=== PATIENT | female | born 1940 | race Caucasian/White ===

== ENCOUNTER 2019-12-11 17:06 | Emergency (ER) | payer MEDICARE ==
--- NOTE | 2019-12-11 17:39 | ERPHSYRPT ---
- History of Present Illness Time Seen by Provider: 12/11/19 17:37 Source: patient, family Exam Limitations: no limitations Patient Subjective Stated Complaint: left hand fingers have been going numb off and on for the past week, pain in socrates shoulders but more so in the left Triage Nursing Assessment: Pt brought to the ER by her , pt denies any injuries to the arm, denies injury to her neck or back, hypertensive, denies pain at this time, pulses normal capillary refill normal Physician History: left hand fingers have been going numb off and on for the past week, pain in socrates shoulders but more so in the left. no chest pain Timing/Duration: week(s) (past week) Severity: mild Associated Symptoms: denies symptoms Allergies/Adverse Reactions: No Known Drug Allergies Allergy (Verified 12/11/19 17:22) Home Medications: Levothyroxine Sodium 25 Mcg [Synthroid 25 Mcg] 1 tab PO DAILY 10/19/13 [ History] Pregabalin 50 mg [Lyrica 50MG] 2 tab PO BID 10/19/13 [History] Fenofibrate Nanocrystallized [Fenofibrate] 145 mg PO DAILY 12/11/19 [History] Oxybutynin Chloride 5 mg [Ditropan 5 MG] 5 mg PO BID 12/11/19 [History] Simvastatin 40 mg PO DAILY 12/11/19 [History] Hx Tetanus, Diphtheria Vaccination/Date Given: No Hx Influenza Vaccination/Date Given: No Hx Pneumococcal Vaccination/Date Given: No Travel Risk - International Travel Have you traveled outside of the country in past 3 weeks: No Have you or anyone close to you been diagnosed with or: No Do your reside in a community with a known COVID-19 case?: No - Coronavirus Screening Has patient experienced Coronavirus symptoms: No - Review of Systems Constitutional: No Fever, No Chills Eyes: No Symptoms Ears, Nose, & Throat: No Symptoms Respiratory: No Cough, No Dyspnea Cardiac: No Chest Pain, No Edema, No Syncope Abdominal/Gastrointestinal: No Abdominal Pain, No Nausea, No Vomiting, No Diarrhea Genitourinary Symptoms: No Dysuria Musculoskeletal: Arthralgias, Joint Pain (bilateral shoulder pain), No Back Pain , No Neck Pain Skin: No Rash Neurological: No Dizziness, No Focal Weakness, No Sensory Changes Psychological: No Symptoms Endocrine: No Symptoms All Other Systems: Reviewed and Negative - Past Medical History Pertinent Past Medical History: Yes Neurological History: No Pertinent History ENT History: No Pertinent History Cardiac History: No Pertinent History Respiratory History: No Pertinent History, Sleep Apnea Endocrine Medical History: Hypothyroidism Musculoskeletal History: Arthritis, Other GI Medical History: No Pertinent History History: No Pertinent History Psycho-Social History: No Pertinent History Female Reproductive Disorders: No Pertinent History - Past Surgical History Past Surgical History: Yes Neuro Surgical History: No Pertinent History Cardiac: No Pertinent History Respiratory: No Pertinent History Gastrointestinal: No Pertinent History Genitourinary: No Pertinent History Musculoskeletal: Orthopedic Surgery Female Surgical History: Hysterectomy Other Surgical History: tumor removed from uterus per hysterectomy. lt knee - Social History Smoking Status: Never smoker Exposure to second hand smoke: No Drug Use: none Patient Lives Alone: No - Female History Hx Now: No - Nursing Vital Signs Nursing Vital Signs: Initial Vital Signs Temperature 98.3 F 12/11/19 17:14 Pulse Rate 93 H 12/11/19 17:14 Blood Pressure 156/66 12/11/19 17:14 O2 Sat by Pulse Oximetry 97 12/11/19 17:14 Pain Scale Pain Intensity 0 - Physical Exam General Appearance: no apparent distress, alert Eye Exam: PERRL/EOMI, eyes nml inspection Ears, Nose, Throat Exam: normal ENT inspection, TMs normal, pharynx normal, moist mucous membranes Neck Exam: normal inspection, non-tender, supple, full range of motion Respiratory Exam: normal breath sounds, lungs clear, No respiratory distress Cardiovascular Exam: regular rate/rhythm, normal heart sounds, normal peripheral pulses Gastrointestinal/Abdomen Exam: soft, normal bowel sounds, No tenderness, No mass Back Exam: normal inspection, normal range of motion, No CVA tenderness, No vertebral tenderness Extremity Exam: normal inspection, pelvis stable, limited range of motion (both shoulder) Neurologic Exam: alert, oriented x 3, cooperative, normal mood/affect, nml cerebellar function, nml station & gait, sensation nml, No motor deficits Skin Exam: normal color, warm, dry, No rash Lymphatic Exam: No adenopathy SpO2: 97 - Course Nursing assessment & vital signs reviewed: Yes EKG Interpreted by Me: Sinus Rhythm, NORMAL ST-T - Radiology Exams Chest X-ray Interpretation: Reviewed by me, Negative Ordered Tests: Active Orders 24 hr Category Date Time Status EKG-ER Only STAT Care 12/11/19 17:35 Active CHEST 2 VIEWS (PA AND LAT) Stat Exams 12/11/19 17:35 Taken CBC W DIFF Stat Lab 12/11/19 17:58 Completed CMP Stat Lab 12/11/19 17:58 Completed TROPONIN Q3H Lab 12/11/19 17:58 Received TROPONIN Q3H Lab 12/11/19 20:45 Ordered TROPONIN Q3H Lab 12/11/19 23:45 Ordered TROPONIN Q3H Lab 12/12/19 02:45 Ordered TROPONIN Q3H Lab 12/12/19 05:45 Ordered Lab/Rad Data: Laboratory Result Diagrams 12/11/19 17:58 12/11/19 17:58 Laboratory Results 12/11/19 12/11/19 Range/Units 17:58 17:58 WBC 6.0 (4.0-10.5) K/mm3 RBC 3.93 L (4.1-5.4) M/mm3 Hgb 10.1 L (12.0-16.0) gm/dl Hct 32.6 L (35-47) % MCV 83.0 (78-100) fl MCH 25.7 L (26-32) pg MCHC 31.0 L (32-36) g/dl RDW 14.4 H (11.5-14.0) % Plt Count 388 (150-450) K/mm3 MPV 8.6 (7.5-11.0) fl Gran % 65.1 (36.0-66.0) % Eos # (Auto) 0.16 (0-0.5) Absolute Lymphs (auto) 1.39 (1.0-4.6) Absolute Monos (auto) 0.51 (0.0-1.3) Lymphocytes % 23.2 L (24.0-44.0) % Monocytes % 8.5 (0.0-12.0) % Eosinophils % 2.7 (0.00-5.0) % Basophils % 0.5 (0.0-0.4) % Absolute Granulocytes 3.90 (1.4-6.9) Basophils # 0.03 (0-0.4) Sodium 140 (137-145) mmol/L Potassium 4.3 (3.5-5.1) mmol/L Chloride 108 H (98-107) mmol/L Carbon Dioxide 26 (22-30) mmol/L Anion Gap 10.7 (5-15) MEQ/L BUN 18 H (7-17) mg/dL Creatinine 0.93 (0.52-1.04) mg/dL Estimated GFR > 60.0 ML/MIN Glucose 104 (74-106) mg/dL Calcium 11.2 H (8.4-10.2) mg/dL Total Bilirubin 0.50 (0.2-1.3) mg/dL AST 22 (14-36) U/L ALT 11 (0-35) U/L Alkaline Phosphatase 77 (38-126) U/L Serum Total Protein 8.1 (6.3-8.2) g/dL Albumin 4.2 (3.5-5.0) g/dL - Progress Progress: improved Counseled pt/family regarding: lab results, diagnosis, need for follow-up, rad results - Departure Departure Disposition: Home Clinical Impression: Tingling of both upper extremities, Pain of left shoulder joint on movement, Hypercalcemia Anemia Qualifiers: Anemia type: iron deficiency Iron deficiency anemia type: unspecified iron deficiency Qualified Code(s): D50.9 - Iron deficiency anemia, unspecified Condition: Stable Critical Care Time: No Referrals: DASHA RAND [Primary Care Provider] - Additional Instructions: Discharge/Care Plan JAVIER HERNÁNDEZ was seen on 12/11/19 in the Emergency Room. The patient was counseled regarding Diagnosis,Lab results, Imaging studies, need for follow up and when to return to the Emergency Room. Prescriptions given: Discharge Note I have spoken with the patient and/or caregivers. I have explained the patient' s condition, diagnosis and treatment plan based on the information available to me at this time. I have answered the patient's and/or caregiver's questions and addressed any concerns. The patient and/or caregivers have as good understanding of the patient's diagnosis, condition and treatment plan as can be expected at this point. The vital signs have been stable. The patient's condition is stable and appropriate for discharge from the emergency department. The patient will pursue further outpatient evaluation with the primary care physician or other designated or consulting physician as outlined in the discharge instructions. The patient and/or caregivers are agreeable to this plan of care and follow-up instructions have been explained in detail. The patient and/or caregivers have received these instruction. The patient/and or caregivers are aware that any significant change in condition or worsening of symptoms should prompt an immediate return to this or the closest emergency department or call 911. JAVIER HERNÁNDEZ was seen on 12/11/19 n the Emergency Room. At that time you were treated for an emergent condition, during your visit Laboratory, Radiology and/or other procedures may have been ordered. It is very important that you follow-up with your Primary Care Physician DASHA RAND within the next 24-48 hours to review your Emergency Room visit and the final results of testing that was ordered. Some test results such as Urine Cultures, Blood Cultures, and other cultures if ordered will not be finalized for 24-48 hours. If you do not have a Primary Care Provider please call the medical records department at [phone] ext [phone] to obtain a copy of your results or you may sign into our patient portal to obtain these results by visiting us @ [email or web address] and completing the following steps: 1. Click on the Patient Portal link 2. Click the Patient Self Enrollment Link to complete the enrollment form and entering your 3. Once the enrollment form is completed you will receive an email with a temporary ID and password at the email address you provided. 4. Next choose a user name and password. Your user name must be at least 4 characters long and your password must be at least 4 characters long. 5. Choose a security question from the list and provide your answer to the question. If you already have signed into the Health Portal you may access your Health Care Information 13/04 by the following steps: 1. Login to our website @ [email or web address] 2. Enter your original user name and password. FAQS [facility] Health Portal is an online tool that contains your Lab Results, Radiology Reports, Visit History, Discharge Instructions and Health Summary Lab and Radiology Results will not be available for 72 hours on the portal. The Portal is a secure site, passwords are encryted and URLs are re-written so they cannot be copied and pasted. You and authorized family members are the only ones who can access your Portal. Also there is a timeout feature that protects your information if you leave the Portal page open. If you have technical difficulty please use the Contact Us link on the page this will allow you to submit any questions you have regarding the Portal or you may contact the Medical Record Department at [phone] ext [phone].
[2019-12-11 18:01] LABS: BASOPHIL % 0.5 % (0.0-0.4); Basophil (Absolute #) 0.03 (0-0.4); Eosinophil % 2.7 % (0.00-5.0); Eosinophil (Absolute #) 0.16 (0-0.5); Hematocrit 32.6 % (35-47); Hemoglobin 10.1 gm/dl (12.0-16.0); Lymphocyte (Absolute #) 1.39 (1.0-4.6); Lymphocytes % 23.2 % (24.0-44.0); Mean Corpuscular Hemoglobin 25.7 pg (26-32); Mean Platelet Volume 8.6 fl (7.5-11.0); Monocyte (Absolute #) 0.51 (0.0-1.3); Monocytes % 8.5 % (0.0-12.0); Neutrophil % 65.1 % (36.0-66.0); Platelet Count 388 K/mm3 (150-450); Red Blood Count 3.93 M/mm3 (4.1-5.4); Red Cell Distribution Width 14.4 % (11.5-14.0)
[2019-12-11 18:12] LABS: ALBUMIN 4.2 g/dL (3.5-5.0); ALKALINE PHOSPHATASE 77 U/L (38-126); ANION GAP 10.7 MEQ/L (5-15); BLOOD UREA NITROGEN 18 mg/dL (7-17); CHLORIDE 108 mmol/L (98-107); Calcium 11.2 mg/dL (8.4-10.2); Carbon Dioxide 26 mmol/L (22-30); Creatinine 1 0.93 mg/dL (0.52-1.04); Glucose 104 mg/dL (74-106); Potassium 4.3 mmol/L (3.5-5.1); SGOT/AST 22 U/L (14-36); SGPT/ALT 11 U/L (0-35); SODIUM 140 mmol/L (137-145); Total Protein 8.1 g/dL (6.3-8.2)
[2019-12-11 18:43] VITALS: BP 145/60; PULSE 88; O2SAT 96
--- NOTE | 2019-12-12 08:45 | XRAY ---
Indication: Chest pain. Comparison: None PA/lateral chest demonstrates normal heart and lungs with incidental calcified granulomas. Bony thorax intact with mild osteopenia and degenerative changes. Impression: Nonacute chest with chronic features.
== END 2019-12-11 18:43 | disposition home or self-care (01) ==
LOC: ED 17:06
DX: R20.2 Paresthesia of skin (principal); M25.512 Pain in left shoulder; E83.52 Hypercalcemia; D64.9 Anemia, unspecified; G47.30 Sleep apnea, unspecified; E03.9 Hypothyroidism, unspecified; M19.90 Unspecified osteoarthritis, unspecified site
CPT/HCPCS: 36415; 71046; 80053; 84484; 85025; 93005; 99284

== ENCOUNTER 2020-03-02 04:56 | Day surgery (SDC) | payer MEDICARE ==
[2020-03-02] MEDS ORDERED: Lactated Ringers 1,000 ML IV ONE ×2 (06:08→08:42)
[2020-03-02] MEDS ORDERED: Lactated Ringers 1,000 ML IV SCH (07:30)
[2020-03-02] MEDS ORDERED: Ketamine HCl 50 MG/ML ONE (07:47)
[2020-03-02] MEDS ORDERED: DIPRIVAN 200 MG/20 ML IV ONE (07:47)
[2020-03-02 09:43] VITALS: BP 184/80; PULSE 80; O2SAT 96
--- NOTE | 2020-03-02 12:44 | OP ---
SURGERY DATE: 03/02/2020 SURGERY TIME: 757 PREOPERATIVE DIAGNOSIS: 1. ANEMIA. POSTOPERATIVE DIAGNOSIS: 1. GASTRITIS. 2. HIATAL HERNIA. 3. DIVERTICULOSIS. 4. SMALL SIGMOID POLYP. PROCEDURE: 1. Esophagogastroduodenoscopy. 2. Colonoscopy with cold forceps biopsy. SURGEON: Dr. Daigle. ANESTHESIA: MAC, given by the Anesthesia Department. BRIEF HISTORY: The patient is an 79 y/o WF presenting now for a history of anemia. The patient reports she has never had endoscopic evaluation. Is of note the patient takes Celebrex and Prednisone. The patient was described the risks of the procedure including the risk of perforation, phlebitis, untoward reaction to medication, bleeding, and missed lesions. The patient verbalized her understanding and desired to have the procedure performed. DESCRIPTION OF PROCEDURE: The patient was given the medications by the Anesthesia Department. She had continuous pulse oximetry, ECG monitoring, intermittent BP monitoring, and end tidal CO2 monitoring during the examination. She was placed in the left lateral decubitus position. A bite block was placed and the flexible Olympus gastroscope was used to intubate the oropharynx. A view of the larynx was obtained and was normal. The scope was easily introduced in the esophagus which appeared to be normal throughout its length. The stomach was entered where normal gastric rugal folds were seen and these distended nicely with the insufflation of air. The scope was passed along the greater curvature of the stomach to the antrum. The pylorus was encountered and intubated. The duodenum was inspected and found to be normal. The scope was withdrawn towards the stomach again. Retroflex view revealed a small hiatal hernia. No other mucosal lesions were encountered. The scope was then redirected towards the gastric antrum and withdrawn from the stomach. There was a generalized appearance of patchy erythema, but no erosions or ulcerations. The scope was removed from the patient. Next, a digital rectal examination was performed and revealed external hemorrhoids, no masses, and normal anal sphincter tone. The flexible Olympus pediatric colonoscope was used to intubate the rectum. A view of the colon was developed sequentially to the cecum. Upon insertion and withdrawal, including a retroflex view in the rectum, was noted diverticulosis throughout the colon. There was a small sigmoid colon polyp at the sigmoid/descending colon junction. This was biopsied using cold biopsy technique to rule out adenomatous change. No other mucosal lesions were noted. The patient did have a fairly acute hairpin turn in the sigmoid colon which we were able to negotiate carefully. The scope was removed from the patient who tolerated the procedure well and was sent back to OP recovery in good condition. The prep was noted to be fair with fair amounts of liquid stool in the left side of the colon and an occasional solid stool.
== END 2020-03-02 09:57 | disposition home or self-care (01) ==
LOC: SDC 04:56
PROVIDERS: ATTEND Family Medicine
DX: K29.70 Gastritis, unspecified, without bleeding (principal); D64.9 Anemia, unspecified; K44.9 Diaphragmatic hernia without obstruction or gangrene; K57.30 Diverticulosis of large intestine without perforation or abscess without bleeding; K64.4 Residual hemorrhoidal skin tags; D12.5 Benign neoplasm of sigmoid colon
CPT/HCPCS: 88305; 99100; J2704

== ENCOUNTER 2020-09-09 23:07 | Emergency (ER) | payer MEDICARE ==
--- NOTE | 2020-09-09 23:15 | ERPHSYRPT ---
- History of Present Illness Time Seen by Provider: 09/09/20 23:10 Source: patient, EMS Exam Limitations: no limitations Physician History: The patient is an 79-year-old female who presents with a chief complaint of a head injury after a mechanical fall that occurred this evening just prior to arrival to the emergency department. She stated she was in her living room and about the put on some [place] decorations when she tripped over a rug and fell impacting her head either on the floor on an unknown object. There is no loss of conscious reported. EMS was called to help assist the patient off of the floor and transported her to the emergency department for further evaluation and management. She complains of a mild headache and appears to have a hematoma to the right parietal occipital aspect of her scalp. She denies taking any antiplatelets or anticoagulants. She also complained of some right lateral neck pain. The pain is mild, nonradiating constant. She was offered pain medication, but declined. She had no additional complaints. Timing/Duration: today Severity: mild Associated Symptoms: No nausea, No vomiting, No abdominal pain, No shortness of breath, No cough, No chest pain Allergies/Adverse Reactions: No Known Drug Allergies Allergy (Verified 03/02/20 06:26) Home Medications: Levothyroxine Sodium 25 Mcg [Synthroid 25 Mcg] 1 tab PO DAILY 10/19/13 [History] Fenofibrate Nanocrystallized [Fenofibrate] 145 mg PO DAILY 12/11/19 [History] Oxybutynin Chloride 5 mg [Ditropan 5 MG] 5 mg PO BID 12/11/19 [History] Simvastatin 40 mg PO DAILY 12/11/19 [History] Cetirizine HCl [Zyrtec] 10 mg PO DAILY PRN PRN 02/17/20 [History] Acetaminophen [Acetaminophen ER] 650 mg PO DAILY PRN 03/02/20 [History] predniSONE [Prednisone] 5 mg PO DAILY 09/09/20 [History] Hx Tetanus, Diphtheria Vaccination/Date Given: No Hx Influenza Vaccination/Date Given: No Hx Pneumococcal Vaccination/Date Given: No - Review of Systems Constitutional: No Fever, No Chills Eyes: No Symptoms Respiratory: No Cough, No Cyanosis Cardiac: No Chest Pain, No Palpitations, No Syncope Abdominal/Gastrointestinal: No Abdominal Pain Musculoskeletal: Neck Pain, Fall, Injury, No Back Pain, No Deformity Skin: Other (Hematoma to scalp) Neurological: Headache Psychological: No Symptoms Immunological/Allergic: No Symptoms All Other Systems: Reviewed and Negative - Past Medical History Pertinent Past Medical History: Yes Neurological History: No Pertinent History ENT History: No Pertinent History Cardiac History: No Pertinent History Respiratory History: No Pertinent History Endocrine Medical History: Hypothyroidism Musculoskeletal History: Arthritis, Other GI Medical History: Gallbladder Disease History: No Pertinent History Psycho-Social History: No Pertinent History Female Reproductive Disorders: No Pertinent History Other Medical History: anemia, - Past Surgical History Past Surgical History: Yes Neuro Surgical History: No Pertinent History Cardiac: No Pertinent History Respiratory: No Pertinent History Gastrointestinal: Cholecystectomy Genitourinary: No Pertinent History Musculoskeletal: Orthopedic Surgery Female Surgical History: Hysterectomy Other Surgical History: tumor removed from uterus per hysterectomy. lt knee, foot surgery - Social History Smoking Status: Never smoker Exposure to second hand smoke: No Drug Use: none Patient Lives Alone: No - Nursing Vital Signs Nursing Vital Signs: Initial Vital Signs Temperature 98.2 F 09/09/20 23:13 Pulse Rate 95 H 09/09/20 23:13 Respiratory Rate 20 09/09/20 23:13 Blood Pressure 182/94 09/09/20 23:13 O2 Sat by Pulse Oximetry 97 09/09/20 23:13 Pain Scale Pain Intensity 2 - Physical Exam General Appearance: no apparent distress, alert Eye Exam: PERRL/EOMI, eyes nml inspection Ears, Nose, Throat Exam: normal ENT inspection, pharynx normal, moist mucous membranes, No pharyngeal erythema, No tonsillar exudate Neck Exam: normal inspection, supple, other (Mild tenderness to the right lateral aspect of the neck with no visible injury. No crepitus, deformities or step-offs noted. There is no midline spine tenderness.), No non-tender Respiratory Exam: normal breath sounds, lungs clear, airway intact, No chest tenderness, No respiratory distress, No diminished breath sounds, No accessory muscle use Cardiovascular Exam: regular rate/rhythm, normal heart sounds, normal peripheral pulses, capillary refill <2 sec, No murmur, No friction rub, No gallop, No edema Gastrointestinal/Abdomen Exam: soft, No tenderness, No distention, No mass, No guarding, No ecchymosis Pelvic Exam: not done Rectal Exam: deferred Back Exam: normal inspection, other (Visible injury noted), No CVA tenderness, No vertebral tenderness Extremity Exam: normal inspection, normal range of motion, No tenderness Neurologic Exam: alert, oriented x 3 (GCS 15), cooperative, normal mood/affect, No uncooperative Skin Exam: normal color, warm, dry, other (1-2 hematoma noted to the R parietal/occipital aspect of scalp), No rash, No petechiae SpO2 Interpretation: normal - Course Nursing assessment & vital signs reviewed: Yes - CT Exams Head CT Interpretation: Tele-radiologist Report (Right parietal scalp contusion) Cervical Spine CT Interpretation: Tele-radiologist Report (Degenerative changes, thyroid nodule, pulmonary nodule) Ordered Tests: Active Orders 24 hr Category Date Time Status Ambulate Patient ROUTINE Care 09/10/20 00:20 Completed CERVICAL SPINE WO CONTRAST [CT] Stat Exams 09/09/20 23:15 Taken HEAD WITHOUT CONTRAST [CT] Stat Exams 09/09/20 23:15 Taken - Progress Progress: unchanged Progress Note: 09/09/20 23:32 Nontoxic in appearance. The patient is A&O x3 with a GCS of 15. Presents with a mechanical fall and a head injury. I will go and obtain a head CT and cervical spine CT and if these are within normal limits I will see if she can ambulate and if she can ambulate without difficulty or complaint of hip pain she can be discharged home to follow-up with her primary care provider if needed. 09/10/20 01:21 The patient was able to ambulate without difficulty or with complaints of hip pain or pelvic pain. Counseled pt/family regarding: diagnosis, need for follow-up, rad results - Departure Departure Disposition: Extended Care Facility Clinical Impression: Head injury, Scalp hematoma, Neck pain, Pulmonary nodule, Thyroid nodule Condition: Stable Critical Care Time: No Referrals: DASHA RAND [Primary Care Provider] - Instructions: Contusion (DC), Preventing Falls, Thyroid Nodules, Minor Head Injury (DC), Pulmonary Nodule Additional Instructions: Please take Tylenol as needed for any ongoing pain or headaches. You can purchase this medication [id number]. Please take this medication as instructed on the medication bottle.
[2020-09-10 01:21] VITALS: BP 128/84; PULSE 82; O2SAT 98
--- NOTE | 2020-09-10 08:54 | XRAY ---
Indication: Right head trauma following fall. Multiple contiguous axial images obtained through the head without contrast. Comparison: July 16, 2006. Age-appropriate global atrophy and minimal periventricular degenerative micro-ischemia bilaterally. No acute intracranial hemorrhage, abnormal extra-axial fluid collection, or mass effect. Fourth ventricle is midline without hydrocephalus. Minimal right parietal scalp soft tissue swelling/hematoma near the vertex. Bony calvarium intact. Visualized paranasal sinuses and mastoid air cells are clear. Impression: Minimal right scalp soft tissue swelling/hematoma. Otherwise nonacute senile brain. Comment: Preliminary interpretation was made by [facility]. No critical discrepancy.
--- NOTE | 2020-09-10 08:58 | XRAY ---
Indication: Right head trauma following fall. Multiple contiguous axial images obtained through the cervical spine. Sagittal and coronal reformatted images obtained. Comparison: None. Age-related osteopenia. Axial images negative for acute fracture, suspicious bony lesions, or spinal canal stenosis. Mild/moderate C3-C7 degenerative endplate spurring. Also mild atlantoaxial degenerative arthropathy and multilevel bilateral degenerative facet hypertrophy. Sagittal and coronal reformatted images demonstrates lordotic straightening, positional versus paraspinal spasm. There is C3-C7 disc space loss. No acute compression fracture, subluxation, or jumped facet. Normal appearing craniocervical junction. Visualized noncontrasted soft tissues demonstrates mild scattered carotid calcifications bilaterally. Also 4 cm left thyroid heterogeneous mass with calcifications translating the trachea to the right. Lung apices are clear. Impression: 1. Cervical lordotic straightening, positional versus paraspinal spasm. 2. Negative for acute fracture/subluxation. 3. Osteopenia and multilevel degenerative changes. 4. Heterogeneous 4 cm left thyroid gland mass with mass effect. Correlate clinically. Thyroid sonogram may yield further information if not already performed. Comment: Preliminary interpretation was made by [facility]. No critical discrepancy.
== END 2020-09-10 01:30 | disposition home or self-care (01) ==
LOC: ED 23:07
DX: S00.83XA Contusion of other part of head, initial encounter (principal); W01.198A Fall on same level from slipping, tripping and stumbling with subsequent striking against other object, initial encounter; R51.9 Headache, unspecified; M54.2 Cervicalgia; R91.1 Solitary pulmonary nodule; E04.1 Nontoxic single thyroid nodule; Z79.899 Other long term (current) drug therapy; E03.9 Hypothyroidism, unspecified
CPT/HCPCS: 70450; 72125; 99284

== ENCOUNTER 2021-02-07 10:23 | Emergency (ER) | payer MEDICARE ==
--- NOTE | 2021-02-07 10:26 | ERPHSYRPT ---
- History of Present Illness Time Seen by Provider: 02/07/21 10:26 Source: patient Exam Limitations: no limitations Physician History: This is an 80-year-old white female who has known enlarging thyroid gland right side greater than left side and is scheduled to have a thyroidectomy on March 05, 2021. Patient was here yesterday to have labs drawn but there was specimen hemolyzed. I contacted the lab and the CBC specimen was hemolyzed. The BMP that was ordered was not hemolyzed. Since the patient had to come back to get her blood drawn, patient's daughter brought her mom into the emergency department because she was complaining that she had mild dysphagia symptoms when eating solid foods. Patient states that she has not felt like eating much lately. Patient states that she can tolerate liquids and soft foods fine. Patient has no problems with breathing. Daughter was concerned because of that dysphagia symptom and the fact she has not been eating well for the last several days. Timing/Duration: day(s) (Several), intermittent Associated Symptoms: loss of appetite Allergies/Adverse Reactions: No Known Drug Allergies Allergy (Verified 02/07/21 10:48) Home Medications: Levothyroxine Sodium 25 Mcg [Synthroid 25 Mcg] 1 tab PO DAILY 10/19/13 [History] Fenofibrate Nanocrystallized [Fenofibrate] 145 mg PO DAILY 12/11/19 [History] Oxybutynin Chloride 5 mg [Ditropan 5 MG] 5 mg PO BID 12/11/19 [History] Simvastatin 40 mg PO DAILY 12/11/19 [History] Cetirizine HCl [Zyrtec] 10 mg PO DAILY PRN PRN 02/17/20 [History] Acetaminophen [Acetaminophen ER] 650 mg PO DAILY PRN 03/02/20 [History] predniSONE [Prednisone] 5 mg PO DAILY 09/09/20 [History] Hx Tetanus, Diphtheria Vaccination/Date Given: No Hx Influenza Vaccination/Date Given: No Hx Pneumococcal Vaccination/Date Given: No Travel Risk - International Travel Have you traveled outside of the country in past 3 weeks: No - Coronavirus Screening Are you exhibiting any of the following symptoms?: No Close contact with a COVID-19 positive Pt in past 14-21 Days: No - Review of Systems Constitutional: No Symptoms Eyes: No Symptoms Ears, Nose, & Throat: No Symptoms Respiratory: No Symptoms Cardiac: No Symptoms Abdominal/Gastrointestinal: Dysphagia (Mild with solid foods) Genitourinary Symptoms: No Symptoms Musculoskeletal: No Symptoms Skin: No Symptoms Neurological: No Symptoms Psychological: No Symptoms Endocrine: No Symptoms Hematologic/Lymphatic: No Symptoms Immunological/Allergic: No Symptoms All Other Systems: Reviewed and Negative - Past Medical History Pertinent Past Medical History: Yes Neurological History: No Pertinent History ENT History: No Pertinent History Cardiac History: No Pertinent History Respiratory History: No Pertinent History Endocrine Medical History: Hypothyroidism Musculoskeletal History: Arthritis, Other GI Medical History: Gallbladder Disease History: No Pertinent History Psycho-Social History: No Pertinent History Female Reproductive Disorders: No Pertinent History Other Medical History: anemia, - Past Surgical History Past Surgical History: Yes Neuro Surgical History: No Pertinent History Cardiac: No Pertinent History Respiratory: No Pertinent History Gastrointestinal: Cholecystectomy Genitourinary: No Pertinent History Musculoskeletal: Orthopedic Surgery Female Surgical History: Hysterectomy Other Surgical History: tumor removed from uterus per hysterectomy. lt knee, foot surgery - Social History Smoking Status: Never smoker Exposure to second hand smoke: No Drug Use: none Patient Lives Alone: No - Nursing Vital Signs Nursing Vital Signs: Initial Vital Signs Temperature 97.0 F 02/07/21 10:38 Pulse Rate 73 02/07/21 10:38 Respiratory Rate 20 02/07/21 10:38 Blood Pressure 179/68 02/07/21 10:38 O2 Sat by Pulse Oximetry 99 02/07/21 10:38 Pain Scale Pain Intensity [Neck] 1 Pain Intensity 1 - Physical Exam General Appearance: no apparent distress, alert, anxiety Eye Exam: PERRL/EOMI Ears, Nose, Throat Exam: normal ENT inspection, moist mucous membranes Neck Exam: normal inspection, supple, full range of motion, thyromegaly (Generalized but right side is larger than the left. The site is tender as well.), other (No evidence of abscess or skin redness or irritation. There is no stridor present.), No subcutaneous emphysema Respiratory Exam: normal breath sounds, lungs clear, airway intact, No chest tenderness, No respiratory distress, No wheezing, No stridor Cardiovascular Exam: regular rate/rhythm, normal heart sounds, normal peripheral pulses Gastrointestinal/Abdomen Exam: soft, normal bowel sounds, No tenderness Pelvic Exam: not done Rectal Exam: not done Back Exam: normal inspection, normal range of motion, No CVA tenderness, No vertebral tenderness Extremity Exam: normal inspection, normal range of motion, pelvis stable Neurologic Exam: alert, oriented x 3, cooperative, geriatric nurse practitioner II-XII nml as tested, normal mood/affect, nml cerebellar function, nml station & gait, sensation nml Skin Exam: normal color, warm, No dry Lymphatic Exam: adenopathy SpO2 Interpretation: normal O2 Delivery: Room Air - Course Nursing assessment & vital signs reviewed: Yes Ordered Tests: Active Orders 24 hr Category Date Time Status NECK WO CONTRAST [CT] Stat Exams 02/07/21 11:18 Completed CBC W DIFF Stat Lab 02/07/21 11:08 Completed MAG [MAGNESIUM] Stat Lab 02/07/21 11:08 Completed Medication Summary Discontinued Medications Generic Name Dose Route Start Last Admin Trade Name Freq PRN Reason Stop Dose Admin Sodium Chloride 500 mls @ 500 mls/hr 02/07/21 10:54 02/07/21 12:19 Sodium Chloride 0.9% 500 Ml IV 02/07/21 11:53 Infused .Q1H ONE Infusion Sodium Chloride Confirm 02/07/21 11:13 Sodium Chloride 0.9% 500 Ml Administered 02/07/21 11:14 Dose 500 mls @ ud IV .STK-MED ONE Lab/Rad Data: Laboratory Result Diagrams 02/07/21 11:08 Laboratory Results 02/07/21 02/07/21 Range/Units 11:08 11:08 WBC 8.6 (4.0-10.5) K/mm3 RBC 3.94 L (4.1-5.4) M/mm3 Hgb 10.9 L (12.0-16.0) gm/dl Hct 36.7 (35-47) % MCV 93.1 (78-100) fl MCH 27.7 (26-32) pg MCHC 29.7 L (32-36) g/dl RDW 13.0 (11.5-14.0) % Plt Count 267 (150-450) K/mm3 MPV 8.9 (7.5-11.0) fl Gran % 79.6 H (36.0-66.0) % Eos # (Auto) 0.10 (0-0.5) Absolute Lymphs (auto) 1.13 (1.0-4.6) Absolute Monos (auto) 0.50 (0.0-1.3) Lymphocytes % 13.1 L (24.0-44.0) % Monocytes % 5.8 (0.0-12.0) % Eosinophils % 1.2 (0.00-5.0) % Basophils % 0.3 (0.0-0.4) % Absolute Granulocytes 6.85 (1.4-6.9) Basophils # 0.03 (0-0.4) Magnesium 2.2 (1.6-2.3) mg/dL - Progress Progress: unchanged Progress Note: 02/07/21 12:27 CAT scan of the soft tissue of the neck without contrast shows marked enlarged heterogeneous left thyroid gland with mass-effect of translating the trachea to the right. Medical decision making: I called Dr. Cristal Padilla, patient's surgical baby attendant. She is out of the office today but I did speak with Brooke, the office nurse. Brooke contacted Dr. Padilla and gave the information I provided Brooke. This included the CT scan report of markedly enlarged heterogeneous left thyroid gland with mass-effect of translating the trachea to the right. I also reported that the patient was having right-sided neck pain and mild dysphagia with solid foods. I told Brooke that the patient did not have stridor. Brooke reported to me that Dr. Padilla stated that the CAT scan report is no different than prior study that was done. She feels that the patient does not need to be transferred or admitted into the hospital at this time. She will call the patient tomorrow and discuss with the patient about possibly moving the surgery date up. Counseled pt/family regarding: lab results, diagnosis, need for follow-up, rad results - Departure Departure Disposition: Home Clinical Impression: Neck pain, Thyroid mass Condition: Stable Critical Care Time: No Referrals: DASHA RAND [Primary Care Provider] - Additional Instructions: Your endocrine surgeon will call you tomorrow and provide you with further management instructions. Continue your medication as prescribed.
[2021-02-07] MEDS ORDERED: Sodium Chloride 0.9% 500 ML 500 ML IV ONE ×2 (10:54→11:13)
[2021-02-07 11:24] LABS: Absolute Neutrophil Ct (ANC) 6.85 (1.4-6.9); BASOPHIL % 0.3 % (0.0-0.4); Basophil (Absolute #) 0.03 (0-0.4); Eosinophil % 1.2 % (0.00-5.0); Hematocrit 36.7 % (35-47); Hemoglobin 10.9 gm/dl (12.0-16.0); Lymphocyte (Absolute #) 1.13 (1.0-4.6); Lymphocytes % 13.1 % (24.0-44.0); Mean Cell Volume 93.1 fl (78-100); Mean Corpuscular Hemoglobin 27.7 pg (26-32); Mean Corpuscular Hgb Concent. 29.7 g/dl (32-36); Mean Platelet Volume 8.9 fl (7.5-11.0); Monocytes % 5.8 % (0.0-12.0); Neutrophil % 79.6 % (36.0-66.0); Platelet Count 267 K/mm3 (150-450); Red Blood Count 3.94 M/mm3 (4.1-5.4); White Blood Count 8.6 K/mm3 (4.0-10.5)
--- NOTE | 2021-02-07 12:06 | XRAY ---
Indication: Large thyroid with dysphagia. Right neck pain. Multiple contiguous axial images obtained through the neck without contrast. Comparison: None Enlarged heterogeneous left thyroid lobe with microcalcifications and extending substernal measuring at least 4.7 x 4.6 x 9 cm with mass effect translating the trachea to the right. Right thyroid unremarkable for noncontrast exam. Mild/moderate scattered vascular calcifications bilaterally. No pathologic cervical or supraclavicular lymphadenopathy. Parotid and submandibular glands are bilaterally symmetric. Cervical spine intact with osteopenia and mild/moderate multilevel degenerative changes. Patient is edentulous. Base of the brain unremarkable. Visualized paranasal sinuses and mastoid air cells are clear. Lung apices demonstrates a 1.0 x 1.3 cm noncalcified medial right upper lobe spiculated mass concerning for malignancy. Incidental tiny left upper lobe calcified granuloma. Impression: 1. Markedly enlarged heterogeneous left thyroid gland with mass effect as detailed. 2. Small right upper lobe spiculated mass concerning for malignancy. 3. Osteopenia and multilevel degenerative spondylosis.
[2021-02-07 12:24] VITALS: BP 160/59; PULSE 66; O2SAT 98
== END 2021-02-07 12:59 | disposition home or self-care (01) ==
LOC: ED 10:23
DX: M54.2 Cervicalgia (principal); E04.1 Nontoxic single thyroid nodule; R13.10 Dysphagia, unspecified; Z79.899 Other long term (current) drug therapy
CPT/HCPCS: 36000; 36415; 70490; 83735; 85025; 99284

== ENCOUNTER 2021-05-26 18:54 | Emergency (ER) | payer MEDICARE ==
[2021-05-26 19:11] VITALS: O2SAT 98
--- NOTE | 2021-05-26 19:18 | ERPHSYRPT ---
- History of Present Illness Source: patient, family Exam Limitations: no limitations Patient Subjective Stated Complaint: to er c/o fall with injury to left shoulder and left side of head. pt states was bending over looking at [place] and "went down" appears to have laceration to left head though needs soaked to measure area from dried blood in place Triage Nursing Assessment: pt arrives p/w/d resp easy a@ox3 denies any loc at time of incident. pt left arm mobile with some discomfort. Bruising and abrasion noted to top front of shoulder Physician History: pt tripped on grass today and fell striking head against small bench and no LOC no blood thinner, but also hit left shoulder and deformed with pain. alert and neurovasc intact . no CP or SOBreath. No dizziness. Occurred: just prior to arrival Reason for Fall: slipped, tripped, fell from standing pos Injuries/Pain Location: head, face, neck, upper extremity Loss of Consciousness: no loss of consciousness Quality: sharpness, throbbing Severity of Pain-Max: moderate Severity of Pain-Current: moderate Associated Symptoms (Fall): headache, neck pain Allergies/Adverse Reactions: No Known Drug Allergies Allergy (Verified 02/07/21 10:48) Home Medications: Levothyroxine Sodium 25 Mcg [Synthroid 25 Mcg] 1 tab PO DAILY 10/19/13 [History] Fenofibrate Nanocrystallized [Fenofibrate] 145 mg PO DAILY 12/11/19 [History] Oxybutynin Chloride 5 mg [Ditropan 5 MG] 5 mg PO BID 12/11/19 [History] Simvastatin 40 mg PO DAILY 12/11/19 [History] Cetirizine HCl [Zyrtec] 10 mg PO DAILY PRN PRN 02/17/20 [History] Acetaminophen [Acetaminophen ER] 650 mg PO DAILY PRN 03/02/20 [History] predniSONE [Prednisone] 5 mg PO DAILY 09/09/20 [History] Hx Tetanus, Diphtheria Vaccination/Date Given: No Hx Influenza Vaccination/Date Given: No Hx Pneumococcal Vaccination/Date Given: No Travel Risk - International Travel Have you traveled outside of the country in past 3 weeks: No - Coronavirus Screening Are you exhibiting any of the following symptoms?: No Close contact with a COVID-19 positive Pt in past 14-21 Days: No - Vaccine Status Have you recieved a Covid-19 vaccination: No - Review of Systems Constitutional: No Fever, No Chills Eyes: No Symptoms Ears, Nose, & Throat: No Symptoms Respiratory: No Cough, No Dyspnea Cardiac: No Chest Pain, No Edema, No Syncope Abdominal/Gastrointestinal: No Abdominal Pain, No Nausea, No Vomiting, No Diarrhea Genitourinary Symptoms: No Dysuria Musculoskeletal: Neck Pain, Deformity (left shoulder), Fall, No Back Pain Skin: No Rash Neurological: No Dizziness, No Focal Weakness, No Sensory Changes Psychological: No Symptoms Endocrine: No Symptoms All Other Systems: Reviewed and Negative - Past Medical History Pertinent Past Medical History: Yes Neurological History: No Pertinent History ENT History: No Pertinent History Cardiac History: No Pertinent History Respiratory History: No Pertinent History Endocrine Medical History: Hypothyroidism Musculoskeletal History: Arthritis, Other GI Medical History: Gallbladder Disease History: No Pertinent History Psycho-Social History: No Pertinent History Female Reproductive Disorders: No Pertinent History Other Medical History: anemia, - Past Surgical History Past Surgical History: Yes Neuro Surgical History: No Pertinent History Cardiac: No Pertinent History Respiratory: No Pertinent History Gastrointestinal: Cholecystectomy Genitourinary: No Pertinent History Musculoskeletal: Orthopedic Surgery Female Surgical History: Hysterectomy Other Surgical History: tumor removed from uterus per hysterectomy. lt knee, foot surgery - Social History Smoking Status: Never smoker Exposure to second hand smoke: No Drug Use: none Patient Lives Alone: No - Nursing Vital Signs Nursing Vital Signs: Initial Vital Signs Temperature 97.8 F 05/26/21 19:04 Pulse Rate 82 05/26/21 19:04 Respiratory Rate 18 05/26/21 19:04 Blood Pressure 187/72 05/26/21 19:04 O2 Sat by Pulse Oximetry 98 05/26/21 19:04 Pain Scale Pain Intensity 5 - [place] Coma Score Best Eye Response ([place]): (4) open spontaneously Best Verbal Response ([place]): (5) oriented Best Motor Response ([place]): (6) obeys commands [place] Total: 15 - Physical Exam General Appearance: no apparent distress, alert Head Injury: no evidence of injury Eye Exam: PERRL/EOMI ENT Exam: airway nml Neck Exam: trachea midline, normal inspection, tenderness (mid posterior spine) Respiratory/Chest Exam: normal breath sounds, No chest tenderness, No respiratory distress Cardiovascular Exam: normal heart sounds, regular rate/rhythm Gastrointestinal Exam: soft, No tenderness, No distention, No guarding, No ecchymosis Rectal Exam: deferred Back Exam: normal inspection, No vertebral tenderness Extremity Exam: normal inspection, normal range of motion, pelvis stable, No deformities Peripheral Pulses: carotid (R): 2+, carotid (L): 2+, femoral (R): 2+, femoral (L): 2+, dorsalis-pedis (R): 2+, dorsalis-pedis (L): 2+ Neurologic Exam: alert, oriented x 3, cooperative, sensation nml, No motor deficits Skin Exam: normal color, warm, dry SpO2 Interpretation: normal SpO2: 98 O2 Delivery: Room Air - Course Nursing assessment & vital signs reviewed: Yes EKG Interpreted by Me: Sinus Rhythm, NORMAL AXIS, NORMAL QRS, Non-specific ST Changes, Other (prolonged [place]) - Radiology Exams Chest X-ray Interpretation: Reviewed by me, No Infiltrates, Other (lung nodules) - CT Exams Head CT Interpretation: Tele-radiologist Report, No/Intracranial Hemorrhag Left Upper Extremity CT Interpretation: Tele-radiologist Report, No Fracture Cervical Spine CT Interpretation: Tele-radiologist Report, No Fracture Ordered Tests: Active Orders 24 hr Category Date Time Status EKG-ER Only STAT Care 05/26/21 19:20 Active IV Insertion STAT Care 05/26/21 19:20 Active CERVICAL SPINE WO CONTRAST [CT] Stat Exams 05/26/21 19:19 Taken CHEST 1 VIEW (PORTABLE) Stat Exams 05/26/21 19:36 Taken FACIAL BONES WO CONTRAST [CT] Stat Exams 05/26/21 19:19 Taken HEAD WITHOUT CONTRAST [CT] Stat Exams 05/26/21 19:19 Taken UPPER EXTREMITY W/O CONTRAST [CT] Stat Exams 05/26/21 19:20 Taken CBC W DIFF Stat Lab 05/26/21 19:37 Completed CMP Stat Lab 05/26/21 19:37 Completed Lactic Acid Stat Lab 05/26/21 19:28 Completed TROPONIN Q3H Lab 05/26/21 19:37 Completed TROPONIN Q3H Lab 05/26/21 22:30 Ordered TROPONIN Q3H Lab 05/27/21 01:30 Ordered TROPONIN Q3H Lab 05/27/21 04:30 Ordered TROPONIN Q3H Lab 05/27/21 07:30 Ordered UA W/RFX UR CULTURE Stat Lab 05/26/21 19:20 Ordered Medication Summary Generic Name Dose Route Start Last Admin Trade Name Briana PRN Reason Stop Dose Admin Sodium Chloride 1,000 mls @ 100 mls/hr 05/26/21 19:30 Sodium Chloride 0.9% 1000 Ml IV 06/25/21 19:29 .Q10H MAGDALENA Discontinued Medications Generic Name Dose Route Start Last Admin Trade Name Briana PRN Reason Stop Dose Admin Diphtheria/Tetanus/Acell Pertussis 0.5 ml 05/26/21 19:25 Adacel Vial IM 05/26/21 19:26 .ONCE ONE Lab/Rad Data: Laboratory Result Diagrams 05/26/21 19:37 05/26/21 19:37 Laboratory Results 05/26/21 05/26/21 05/26/21 Range/Units 19:37 19:37 19:37 WBC 7.5 (4.0-10.5) K/mm3 RBC 3.96 L (4.1-5.4) M/mm3 Hgb 10.4 L (12.0-16.0) gm/dl Hct 34.8 L (35-47) % MCV 87.9 (78-100) fl MCH 26.3 (26-32) pg MCHC 29.9 L (32-36) g/dl RDW 14.0 (11.5-14.0) % Plt Count 313 (150-450) K/mm3 MPV 8.7 (7.5-11.0) fl Gran % 78.4 H (36.0-66.0) % Eos # (Auto) 0.06 (0-0.5) Absolute Lymphs (auto) 0.99 L (1.0-4.6) Absolute Monos (auto) 0.54 (0.0-1.3) Lymphocytes % 13.3 L (24.0-44.0) % Monocytes % 7.2 (0.0-12.0) % Eosinophils % 0.8 (0.00-5.0) % Basophils % 0.3 (0.0-0.4) % Absolute Granulocytes 5.86 (1.4-6.9) Basophils # 0.02 (0-0.4) Sodium 142 (137-145) mmol/L Potassium 4.2 (3.5-5.1) mmol/L Chloride 107 (98-107) mmol/L Carbon Dioxide 24 (22-30) mmol/L Anion Gap 15.2 H (5-15) MEQ/L BUN 26 H (7-17) mg/dL Creatinine 1.17 H (0.52-1.04) mg/dL Estimated GFR 47.1 ML/MIN Glucose 136 H (74-106) mg/dL Lactic Acid (0.4-2.0) Calcium 11.7 H (8.4-10.2) mg/dL Total Bilirubin 0.50 (0.2-1.3) mg/dL AST 23 (14-36) U/L ALT 13 (0-35) U/L Alkaline Phosphatase 64 (38-126) U/L Troponin I < 0.012 (0.000-0.034) ng/mL Serum Total Protein 7.4 (6.3-8.2) g/dL Albumin 4.4 (3.5-5.0) g/dL 05/26/21 Range/Units 19:28 WBC (4.0-10.5) K/mm3 RBC (4.1-5.4) M/mm3 Hgb (12.0-16.0) gm/dl Hct (35-47) % MCV (78-100) fl MCH (26-32) pg MCHC (32-36) g/dl RDW (11.5-14.0) % Plt Count (150-450) K/mm3 MPV (7.5-11.0) fl Gran % (36.0-66.0) % Eos # (Auto) (0-0.5) Absolute Lymphs (auto) (1.0-4.6) Absolute Monos (auto) (0.0-1.3) Lymphocytes % (24.0-44.0) % Monocytes % (0.0-12.0) % Eosinophils % (0.00-5.0) % Basophils % (0.0-0.4) % Absolute Granulocytes (1.4-6.9) Basophils # (0-0.4) Sodium (137-145) mmol/L Potassium (3.5-5.1) mmol/L Chloride (98-107) mmol/L Carbon Dioxide (22-30) mmol/L Anion Gap (5-15) MEQ/L BUN (7-17) mg/dL Creatinine (0.52-1.04) mg/dL Estimated GFR ML/MIN Glucose (74-106) mg/dL Lactic Acid 1.3 (0.4-2.0) Calcium (8.4-10.2) mg/dL Total Bilirubin (0.2-1.3) mg/dL AST (14-36) U/L ALT (0-35) U/L Alkaline Phosphatase (38-126) U/L Troponin I (0.000-0.034) ng/mL Serum Total Protein (6.3-8.2) g/dL Albumin (3.5-5.0) g/dL - Progress Progress: improved, re-examined Progress Note: 05/26/21 21:06 pt advised that additional pathology may be evolving undetected and therefore need for f/u that , lung nodules, and lab findings as well as shoulder injury and concussion. she understands and wishes DC to outpt f/u rather than furtther w/u in ER or obs and has the capcity to make that choice. Counseled pt/family regarding: lab results, diagnosis, need for follow-up, rad results - Departure Departure Disposition: Home Clinical Impression: Pulmonary nodule, Right upper lobe pulmonary nodule, Other injury of muscle(s) and tendon(s) of the rotator cuff of left shoulder, sequela, Concussion, Contusion of face Condition: Good Critical Care Time: No Referrals: DASHA RAND [Primary Care Provider] - Instructions: Preventing Falls, Rotator Cuff Injury (DC), Shoulder Tendinopathy (DC), Concussion, Adult (DC), Multiple Pulmonary Nodules Additional Instructions: followup with your this week for lung nodules.and left shoulder injury . follow head injury precautions for concussion and return meantime if any symptoms of concern. followup kidneys and blood pressuree adn anemia with your as well.
[2021-05-26] MEDS ORDERED: Adacel Vial IM ONE ×2 (19:25→21:00)
[2021-05-26] MEDS ORDERED: Sodium Chloride 0.9% 1000 ML 1,000 ML IV SCH (19:30)
[2021-05-26 19:40] LABS: Absolute Neutrophil Ct (ANC) 5.86 (1.4-6.9); BASOPHIL % 0.3 % (0.0-0.4); Basophil (Absolute #) 0.02 (0-0.4); Eosinophil % 0.8 % (0.00-5.0); Eosinophil (Absolute #) 0.06 (0-0.5); Hematocrit 34.8 % (35-47); Hemoglobin 10.4 gm/dl (12.0-16.0); Lymphocyte (Absolute #) 0.99 (1.0-4.6); Lymphocytes % 13.3 % (24.0-44.0); Mean Cell Volume 87.9 fl (78-100); Mean Corpuscular Hemoglobin 26.3 pg (26-32); Mean Corpuscular Hgb Concent. 29.9 g/dl (32-36); Mean Platelet Volume 8.7 fl (7.5-11.0); Monocyte (Absolute #) 0.54 (0.0-1.3); Monocytes % 7.2 % (0.0-12.0); Neutrophil % 78.4 % (36.0-66.0); Platelet Count 313 K/mm3 (150-450); Red Blood Count 3.96 M/mm3 (4.1-5.4); White Blood Count 7.5 K/mm3 (4.0-10.5)
[2021-05-26 19:59] LABS: ALBUMIN 4.4 g/dL (3.5-5.0); ANION GAP 15.2 MEQ/L (5-15); BILIRUBIN,TOTAL 0.5 mg/dL (0.2-1.3); Calcium 11.7 mg/dL (8.4-10.2); Creatinine 1 1.17 mg/dL (0.52-1.04); EST GLOMERULAR FILTRATION RATE 47.1 ML/MIN; Potassium 4.2 mmol/L (3.5-5.1); Total Protein 7.4 g/dL (6.3-8.2)
[2021-05-26 21:00] VITALS: PULSE 74
[2021-05-26 21:01] LABS: Amourphous Crystal FEW /HPF (NEGATIVE); Appearance CLEAR (CLEAR); Bacteria RARE /HPF (NEGATIVE); Bilirubin NEGATIVE (NEGATIVE); Blood NEGATIVE Ery/ul (0-5); Glucose NEGATIVE (NEGATIVE); Ketones NEGATIVE (NEGATIVE); Leukocyte Esterase TRACE (NEGATIVE); Nitrite NEGATIVE (NEGATIVE); Protein,Urine Dip NEGATIVE (Negative); Specific Gravity 1.006 (1.005-1.025); Urobilinogen NEGATIVE mg/dL (0-1)
[2021-05-26 21:57] VITALS: BP 168/72
--- NOTE | 2021-05-27 07:08 | XRAY ---
Indication: Head and left facial injury following fall. Multiple contiguous axial images obtained through the facial bones. Sagittal and coronal reformatted images obtained Comparison: None. Patient is edentulous. Mild left facial soft tissue swelling/edema. No acute fracture, suspicious bone lesions, or radiopaque foreign body. Orbits including roof, wright, floors are intact. Paranasal sinuses and nasal passages are clear. Minimal nasal septal deviation to the right. Visualized noncontrasted soft tissues are unremarkable. CT head and CT cervical spine reported separately. Impression: Left facial soft tissue swelling/edema. Nasal septal deviation. Remaining CT facial bones negative. Comment: Preliminary interpretation made by [facility]. No critical discrepancy.
--- NOTE | 2021-05-27 07:08 | XRAY ---
Indication: Head injury following fall. Multiple contiguous axial images obtained through the head without contrast. Comparison: September 09, 2020. Again age-appropriate global atrophy and mild periventricular degenerative micro-ischemia bilaterally. No acute intracranial hemorrhage, abnormal extra-axial fluid collection, or mass effect. Fourth ventricle is midline without hydrocephalus. Bony calvarium intact. Visualized paranasal sinuses and master cells are clear. CT cervical spine and CT facial bones reported separately. Impression: Continued nonacute senile brain. Comment: Preliminary interpretation made by [facility]. No critical discrepancy.
--- NOTE | 2021-05-27 07:12 | XRAY ---
Indication: Head injury following fall. Multiple contiguous axial images obtained through the cervical spine. Sagittal and coronal reformatted images obtained. Comparison: September 09, 2020. Again age-related osteopenia. Axial images remain negative for acute fracture, suspicious bony lesions, or spinal canal stenosis. Stable mild/moderate C3-C7 degenerative endplate spurring, mild atlantoaxial degenerative arthropathy, and multilevel bilateral degenerative facet hypertrophy. Sagittal and coronal reformatted images again demonstrates lordotic reversal, positional versus paraspinal spasm. Stable C3-C7 degenerative disc space loss. No acute compression fracture, subluxation, or jumped facet. Normal appearing craniocervical junction. Visualized noncontrast soft tissues again demonstrates mild bilateral carotid calcifications. Lung apices demonstrates 1.1 cm right apical spiculated nodule concerning for malignancy. CT head and CT facial bones reported separately. Impression: 1. Cervical lordotic reversal, positional versus paraspinal spasm. 2. Continued negative acute fracture/subluxation. 3. Again osteopenia multilevel degenerative changes. 4. 1.1 cm right upper lobe spiculated nodule. Comment: Preliminary interpretation made by [facility]. No critical discrepancy.
--- NOTE | 2021-05-27 07:16 | XRAY ---
Indication: Pain following fall. Multiple contiguous axial images obtained through the left shoulder. Sagittal and coronal reformatted images obtained. Comparison: None. Osseous structures demineralized. No acute fracture, dislocation, or suspicious bony lesions. Incidental moderate acromioclavicular and glenohumeral degenerative arthropathy. Distal rotator cuff demonstrates calcific tendinitis. No large effusion. Minimal subclavian artery calcifications and a few left lung calcified granulomas. Remaining visualized noncontrasted soft tissues unremarkable. Impression: 1. Calcific tendinitis distal rotator cuff, osteopenia, degenerative changes, and old granulomatous disease. 2. Remaining CT left shoulder is negative. Comment: Preliminary interpretation made by [facility]. No critical discrepancy.
--- NOTE | 2021-05-27 07:18 | XRAY ---
Indication: Status post fall. Comparison: December 11, 2019. Portable chest unchanged again demonstrating left mid lung calcified granuloma. Remaining heart and lungs unremarkable. Bony thorax intact again with osteopenia and degenerative changes. No new/acute findings.
== END 2021-05-26 20:40 | disposition home or self-care (01) ==
LOC: ED 18:54
DX: R91.1 Solitary pulmonary nodule (principal); S46.002A Unspecified injury of muscle(s) and tendon(s) of the rotator cuff of left shoulder, initial encounter; W01.198A Fall on same level from slipping, tripping and stumbling with subsequent striking against other object, initial encounter; Y92.89 Other specified places as the place of occurrence of the external cause; S40.212A Abrasion of left shoulder, initial encounter; M54.2 Cervicalgia; R51.9 Headache, unspecified; Z79.899 Other long term (current) drug therapy; E03.9 Hypothyroidism, unspecified
CPT/HCPCS: 36415; 70450; 70486; 71045; 72125; 73200; 80053; 81001; 83605; 84484; 85025; 90471; 90715; 93005; 99284

== ENCOUNTER 2022-08-26 11:52 | Observation (INO) | payer MEDICARE ==
--- NOTE | 2022-08-26 11:57 | ERPHSYRPT ---
- History of Present Illness Time Seen by Provider: 08/26/22 11:57 Historian: patient, EMS Exam Limitations: other (Patient is not the best historian) Physician History: This is an 81-year-old white female patient of nurse practitioner Rashaun who presents to the emergency department via ambulance service with rectal bleeding. Patient is not the best historian. I was able to obtain from the patient that she is not short of breath. She has no chest pain. She has no abdominal pain. Her son arrived shortly after she did and states that approximately 2 weeks ago she did have a lung procedure performed. He also stated that this morning, his sister noticed blood clots rectally out of his mother. That is why they brought her into the emergency department via ambulance. He is unaware of the patient taking anticoagulation therapy. Patient does have a history of chronic anemia, hypothyroidism, hyperlipidemia, cholecystectomy and hysterectomy. Timing/Duration: today Quality: other (No abdominal pain) Severity of Pain-Max: none Severity of Pain-Current: none Associated Symptoms: denies symptoms Previous symptoms: no prior history Allergies/Adverse Reactions: No Known Drug Allergies Allergy (Verified 08/26/22 11:53) Home Medications: Levothyroxine Sodium 25 Mcg [Synthroid 25 Mcg] 100 mcg PO DAILY 10/19/13 [History] Fenofibrate Nanocrystallized [Fenofibrate] 145 mg PO DAILY 12/11/19 [History] Oxybutynin Chloride 5 mg [Ditropan 5 MG] 5 mg PO BID 12/11/19 [History] Simvastatin 40 mg PO DAILY 12/11/19 [History] Cetirizine HCl [Zyrtec] 10 mg PO DAILY PRN PRN 02/17/20 [History] predniSONE [Prednisone] 5 mg PO DAILY 09/09/20 [History] Donepezil HCl 10 mg [Aricept 10 MG] 10 mg PO HS 08/26/22 [History] Fluticasone Propionate [Flovent Diskus] 50 mcg IH DAILY 08/26/22 [History] Megestrol Acetate [Megace Susp] 40 mg PO DAILY 08/26/22 [History] Memantine HCl [Namenda] 10 mg PO 08/26/22 [History] guaiFENesin [Mucus Relief ER] 600 mg PO BID 08/26/22 [History] Hx Tetanus, Diphtheria Vaccination/Date Given: No Hx Influenza Vaccination/Date Given: No Hx Pneumococcal Vaccination/Date Given: No Travel Risk - International Travel Have you traveled outside of the country in past 3 weeks: No - Coronavirus Screening Are you exhibiting any of the following symptoms?: No Close contact with a COVID-19 positive Pt in past 14-21 Days: No - Vaccine Status Have you recieved a Covid-19 vaccination: No - Review of Systems Constitutional: No Symptoms Eyes: No Symptoms Ears, Nose, & Throat: No Symptoms Respiratory: No Symptoms Cardiac: No Symptoms Abdominal/Gastrointestinal: Hematochezia (With associated clots), No Abdominal Pain, No Nausea, No Vomiting, No Diarrhea Genitourinary Symptoms: No Symptoms Musculoskeletal: No Symptoms Skin: No Symptoms Neurological: No Symptoms Psychological: No Symptoms Endocrine: No Symptoms Hematologic/Lymphatic: No Symptoms Immunological/Allergic: No Symptoms All Other Systems: Reviewed and Negative - Past Medical History Pertinent Past Medical History: Yes Neurological History: No Pertinent History ENT History: No Pertinent History Cardiac History: No Pertinent History Respiratory History: No Pertinent History Endocrine Medical History: Hypothyroidism Musculoskeletal History: Arthritis, Other GI Medical History: Gallbladder Disease History: No Pertinent History Psycho-Social History: No Pertinent History Female Reproductive Disorders: No Pertinent History Other Medical History: anemia, - Past Surgical History Past Surgical History: Yes Neuro Surgical History: No Pertinent History Cardiac: No Pertinent History Respiratory: No Pertinent History Gastrointestinal: Cholecystectomy Genitourinary: No Pertinent History Musculoskeletal: Orthopedic Surgery Female Surgical History: Hysterectomy Other Surgical History: tumor removed from uterus per hysterectomy. lt knee, foot surgery - Social History Smoking Status: Never smoker Exposure to second hand smoke: No Drug Use: none Patient Lives Alone: No - Nursing Vital Signs Nursing Vital Signs: Initial Vital Signs Temperature 98.5 F 08/26/22 11:52 Pulse Rate 94 H 08/26/22 11:52 Respiratory Rate 22 08/26/22 11:52 Blood Pressure 149/57 08/26/22 11:52 O2 Sat by Pulse Oximetry 97 08/26/22 11:52 Pain Scale Pain Intensity 0 - Physical Exam General Appearance: no apparent distress, alert, anxiety Eye Exam: PERRL/EOMI, eyes nml inspection Ears, Nose, Throat Exam: normal ENT inspection, dry mucous membranes Neck Exam: normal inspection, non-tender, supple, full range of motion Respiratory Exam: normal breath sounds, lungs clear, airway intact, No chest tenderness, No respiratory distress Cardiovascular Exam: regular rate/rhythm, normal heart sounds, normal peripheral pulses Gastrointestinal/Abdomen Exam: soft, normal bowel sounds, No tenderness Pelvic Exam: not done Rectal Exam: not done Back Exam: normal inspection, normal range of motion, No CVA tenderness Extremity Exam: normal range of motion, pelvis stable, No normal inspection Neurologic Exam: alert, cooperative, 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, normal mood/affect, other (Oriented to self and place) Skin Exam: normal color, warm, dry Lymphatic Exam: No adenopathy SpO2 Interpretation: normal O2 Delivery: Room Air - Course Nursing assessment & vital signs reviewed: Yes Ordered Tests: Active Orders 24 hr Category Date Time Status Enema STAT Care 08/26/22 12:59 Active Archuleta [Catheter-[place] Archuleta] STAT Care 08/26/22 12:30 Active IV Insertion STAT Care 08/26/22 12:02 Active ABDOMEN AND PELVIS W/0 CONTRAS [CT] Stat Exams 08/26/22 12:02 Completed AMYLASE Stat Lab 08/26/22 12:15 Completed CBC W DIFF Stat Lab 08/26/22 12:15 Completed CMP Stat Lab 08/26/22 12:15 Completed LIPASE Stat Lab 08/26/22 12:15 Completed Lactic Acid Stat Lab 08/26/22 12:15 Completed PT INR [PROTIME WITH INR] Stat Lab 08/26/22 12:15 Completed UA W/RFX CULTURE Stat Lab 08/26/22 12:52 Completed Transfer Order Routine Transfer 08/26/22 Ordered Medication Summary Generic Name Dose Route Start Last Admin Trade Name Freq PRN Reason Stop Dose Admin Piperacillin Sod/Tazobactam 100 mls @ 200 mls/hr 08/26/22 16:05 Sod 3.375 gm/ Sodium Chloride IV 08/26/22 16:34 STAT ONE Lab/Rad Data: Laboratory Result Diagrams 08/26/22 12:15 08/26/22 12:15 Laboratory Results 08/26/22 08/26/22 08/26/22 Range/Units 12:52 12:15 12:15 WBC (4.0-10.5) x10^3/uL RBC (4.1-5.4) x10^6/uL Hgb (12.0-16.0) g/dL Hct (35-47) % MCV (78-100) fL MCH (26-32) pg MCHC (32-36) g/dL RDW (11.5-14.0) % Plt Count (150-450) x10^3/uL MPV (7.5-11.0) fL Gran % (36.0-66.0) % Immature Gran % (Auto) (0.00-0.4) % Nucleat RBC Rel Count (0.00-0.1) % Eos # (Auto) (0-0.5) x10^3/uL Immature Gran # (Auto) (0.00-0.03) x10^3u/L Absolute Lymphs (auto) (1.0-4.6) x10^3/uL Absolute Monos (auto) (0.0-1.3) x10^3/uL Absolute Nucleated RBC (0.00-0.01) x10^3u/L Lymphocytes % (24.0-44.0) % Monocytes % (0.0-12.0) % Eosinophils % (0.00-5.0) % Basophils % (0.0-0.4) % Absolute Granulocytes (1.4-6.9) x10^3/uL Basophils # (0-0.4) x10^3/uL PT (9.4-12.5) SECONDS INR (0.8-3.0) Sodium (137-145) mmol/L Potassium (3.5-5.1) mmol/L Chloride (98-107) mmol/L Carbon Dioxide (22-30) mmol/L Anion Gap (5-15) MEQ/L BUN (7-17) mg/dL Creatinine (0.52-1.04) mg/dL Estimated GFR ML/MIN Glucose (74-106) mg/dL Lactic Acid (0.4-2.0) Calcium (8.4-10.2) mg/dL Total Bilirubin (0.2-1.3) mg/dL AST (14-36) U/L ALT (0-35) U/L Alkaline Phosphatase (38-126) U/L Serum Total Protein (6.3-8.2) g/dL Albumin (3.5-5.0) g/dL Amylase (30-110) U/L Lipase (23-300) U/L Urinalys Dipstick Clnc MAIN LAB Urine Color YELLOW (YELLOW) Urine Appearance CLEAR (CLEAR) Urine pH 6.0 (5-6) Ur Specific [place] 1.025 (1.005-1.025) POC Urine Protein Conf NEGATIVE (Negative) Urine Ketones NEGATIVE (NEGATIVE) Urine Nitrite NEGATIVE (NEGATIVE) Urine Bilirubin NEGATIVE (NEGATIVE) Urine Urobilinogen 0.2 (0-1) mg/dL Urine Leukocytes NEGATIVE (NEGATIVE) Urine WBC (Auto) 0-2 (0-5) /HPF Urine RBC (Auto) NONE (0-2) /HPF U Epithel Cells (Auto) NONE (FEW) /HPF Urine Bacteria (Auto) NONE (NEGATIVE) /HPF Urine RBC NEGATIVE (0-5) Sohail/ul Ur Culture Indicated? NO Urine Glucose 100 A (NEGATIVE) mg/dL Influenza Type A Ag NEGATIVE (NEGATIVE) Influenza Type B Ag NEGATIVE (NEGATIVE) RSV (PCR) NEGATIVE (Negative) SARS-CoV-2 (PCR) NEGATIVE (NEGATIVE) ABO Group O Rh Factor POSITIVE Antibody Screen NEGATIVE (NEGATIVE) 08/26/22 08/26/22 08/26/22 Range/Units 12:15 12:15 12:15 WBC (4.0-10.5) x10^3/uL RBC (4.1-5.4) x10^6/uL Hgb (12.0-16.0) g/dL Hct (35-47) % MCV (78-100) fL MCH (26-32) pg MCHC (32-36) g/dL RDW (11.5-14.0) % Plt Count (150-450) x10^3/uL MPV (7.5-11.0) fL Gran % (36.0-66.0) % Immature Gran % (Auto) (0.00-0.4) % Nucleat RBC Rel Count (0.00-0.1) % Eos # (Auto) (0-0.5) x10^3/uL Immature Gran # (Auto) (0.00-0.03) x10^3u/L Absolute Lymphs (auto) (1.0-4.6) x10^3/uL Absolute Monos (auto) (0.0-1.3) x10^3/uL Absolute Nucleated RBC (0.00-0.01) x10^3u/L Lymphocytes % (24.0-44.0) % Monocytes % (0.0-12.0) % Eosinophils % (0.00-5.0) % Basophils % (0.0-0.4) % Absolute Granulocytes (1.4-6.9) x10^3/uL Basophils # (0-0.4) x10^3/uL PT 12.7 H (9.4-12.5) SECONDS INR 1.22 (0.8-3.0) Sodium 142 (137-145) mmol/L Potassium 4.2 (3.5-5.1) mmol/L Chloride 108 H (98-107) mmol/L Carbon Dioxide 28 (22-30) mmol/L Anion Gap 10.2 (5-15) MEQ/L BUN 34 H (7-17) mg/dL Creatinine 0.92 (0.52-1.04) mg/dL Estimated GFR > 60.0 ML/MIN Glucose 217 H (74-106) mg/dL Lactic Acid 1.8 (0.4-2.0) Calcium 11.1 H (8.4-10.2) mg/dL Total Bilirubin 0.70 (0.2-1.3) mg/dL AST 27 (14-36) U/L ALT 27 (0-35) U/L Alkaline Phosphatase 108 (38-126) U/L Serum Total Protein 7.0 (6.3-8.2) g/dL Albumin 3.3 L (3.5-5.0) g/dL Amylase 51 (30-110) U/L Lipase 34 (23-300) U/L Urinalys Dipstick Clnc Urine Color (YELLOW) Urine Appearance (CLEAR) Urine pH (5-6) Ur Specific [place] (1.005-1.025) POC Urine Protein Conf (Negative) Urine Ketones (NEGATIVE) Urine Nitrite (NEGATIVE) Urine Bilirubin (NEGATIVE) Urine Urobilinogen (0-1) mg/dL Urine Leukocytes (NEGATIVE) Urine WBC (Auto) (0-5) /HPF Urine RBC (Auto) (0-2) /HPF U Epithel Cells (Auto) (FEW) /HPF Urine Bacteria (Auto) (NEGATIVE) /HPF Urine RBC (0-5) Sohail/ul Ur Culture Indicated? Urine Glucose (NEGATIVE) mg/dL Influenza Type A Ag (NEGATIVE) Influenza Type B Ag (NEGATIVE) RSV (PCR) (Negative) SARS-CoV-2 (PCR) (NEGATIVE) ABO Group Rh Factor Antibody Screen (NEGATIVE) 08/26/22 Range/Units 12:15 WBC 16.3 H (4.0-10.5) x10^3/uL RBC 3.30 L (4.1-5.4) x10^6/uL Hgb 9.0 L (12.0-16.0) g/dL Hct 30.8 L (35-47) % MCV 93.3 (78-100) fL MCH 27.3 (26-32) pg MCHC 29.2 L (32-36) g/dL RDW 14.2 H (11.5-14.0) % Plt Count 537 H (150-450) x10^3/uL MPV 9.3 (7.5-11.0) fL Gran % 79.3 H (36.0-66.0) % Immature Gran % (Auto) 2.6 H (0.00-0.4) % Nucleat RBC Rel Count 0.0 (0.00-0.1) % Eos # (Auto) 0.07 (0-0.5) x10^3/uL Immature Gran # (Auto) 0.42 H (0.00-0.03) x10^3u/L Absolute Lymphs (auto) 1.79 (1.0-4.6) x10^3/uL Absolute Monos (auto) 1.03 (0.0-1.3) x10^3/uL Absolute Nucleated RBC 0.00 (0.00-0.01) x10^3u/L Lymphocytes % 11.0 L (24.0-44.0) % Monocytes % 6.3 (0.0-12.0) % Eosinophils % 0.4 (0.00-5.0) % Basophils % 0.4 (0.0-0.4) % Absolute Granulocytes 12.88 H (1.4-6.9) x10^3/uL Basophils # 0.06 (0-0.4) x10^3/uL PT (9.4-12.5) SECONDS INR (0.8-3.0) Sodium (137-145) mmol/L Potassium (3.5-5.1) mmol/L Chloride (98-107) mmol/L Carbon Dioxide (22-30) mmol/L Anion Gap (5-15) MEQ/L BUN (7-17) mg/dL Creatinine (0.52-1.04) mg/dL Estimated GFR ML/MIN Glucose (74-106) mg/dL Lactic Acid (0.4-2.0) Calcium (8.4-10.2) mg/dL Total Bilirubin (0.2-1.3) mg/dL AST (14-36) U/L ALT (0-35) U/L Alkaline Phosphatase (38-126) U/L Serum Total Protein (6.3-8.2) g/dL Albumin (3.5-5.0) g/dL Amylase (30-110) U/L Lipase (23-300) U/L Urinalys Dipstick Clnc Urine Color (YELLOW) Urine Appearance (CLEAR) Urine pH (5-6) Ur Specific [place] (1.005-1.025) POC Urine Protein Conf (Negative) Urine Ketones (NEGATIVE) Urine Nitrite (NEGATIVE) Urine Bilirubin (NEGATIVE) Urine Urobilinogen (0-1) mg/dL Urine Leukocytes (NEGATIVE) Urine WBC (Auto) (0-5) /HPF Urine RBC (Auto) (0-2) /HPF U Epithel Cells (Auto) (FEW) /HPF Urine Bacteria (Auto) (NEGATIVE) /HPF Urine RBC (0-5) Sohail/ul Ur Culture Indicated? Urine Glucose (NEGATIVE) mg/dL Influenza Type A Ag (NEGATIVE) Influenza Type B Ag (NEGATIVE) RSV (PCR) (Negative) SARS-CoV-2 (PCR) (NEGATIVE) ABO Group Rh Factor Antibody Screen (NEGATIVE) - Progress Progress Note: 08/26/22 12:53 CAT scan of the abdomen pelvis without contrast shows new, mild diffuse fecal stasis with moderate rectal impaction. 08/26/22 14:56 Medical decision making: This patient is an elderly 81-year-old female who is hard of hearing and lives with her elderly . She is anemic and had significant amount of blood clots rectally as well as fecal impaction. The plan is to place her in observation and do serial hemoglobins and then obtain surgical consultation for possible endoscopy during this stay. I spoke with Dr. Hernandez and he agrees with this plan Discussed with .: George Counseled pt/family regarding: lab results, diagnosis, need for follow-up, rad results - Departure Departure Disposition: Observation Clinical Impression: Rectal bleeding, Anemia, Leukocytosis Condition: Fair Critical Care Time: No Referrals: DASHA [facility] [employer] INSPECTOR [Primary Care Provider] - Follow up/PCP as directed
[2022-08-26 12:28] LABS: Absolute Neutrophil Ct (ANC) 12.88 x10^3/uL (1.4-6.9); Basophil (Absolute #) 0.06 x10^3/uL (0-0.4); Eosinophil % 0.4 % (0.00-5.0); Eosinophil (Absolute #) 0.07 x10^3/uL (0-0.5); Hematocrit 30.8 % (35-47); Lymphocyte (Absolute #) 1.79 x10^3/uL (1.0-4.6); Mean Cell Volume 93.3 fL (78-100); Mean Corpuscular Hemoglobin 27.3 pg (26-32); Mean Corpuscular Hgb Concent. 29.2 g/dL (32-36); Mean Platelet Volume 9.3 fL (7.5-11.0); Monocyte (Absolute #) 1.03 x10^3/uL (0.0-1.3); Monocytes % 6.3 % (0.0-12.0); Neutrophil % 79.3 % (36.0-66.0); Platelet Count 537 x10^3/uL (150-450); Red Cell Distribution Width 14.2 % (11.5-14.0); White Blood Count 16.3 x10^3/uL (4.0-10.5)
[2022-08-26 12:41] LABS: ALBUMIN 3.3 g/dL (3.5-5.0); ALKALINE PHOSPHATASE 108 U/L (38-126); AMYLASE 51 U/L (30-110); ANION GAP 10.2 MEQ/L (5-15); BLOOD UREA NITROGEN 34 mg/dL (7-17); CHLORIDE 108 mmol/L (98-107); Calcium 11.1 mg/dL (8.4-10.2); Carbon Dioxide 28 mmol/L (22-30); Creatinine 1 0.92 mg/dL (0.52-1.04); EST GLOMERULAR FILTRATION RATE > 60.0 ML/MIN; Glucose 217 mg/dL (74-106); LIPASE 34 U/L (23-300); Potassium 4.2 mmol/L (3.5-5.1); SGOT/AST 27 U/L (14-36); SGPT/ALT 27 U/L (0-35); SODIUM 142 mmol/L (137-145)
--- NOTE | 2022-08-26 12:49 | XRAY ---
Indication: Rectal bleeding 2 days. Multiple contiguous images obtained through the abdomen and pelvis without contrast. Comparison: October 19, 2013 Lung bases clear of infiltrate or effusion. Heart not enlarged. Radiopacities throughout the colon either ingested medication, bismuth, or barium. Mild scattered descending and sigmoid diverticulosis without diverticulitis. Noncontrasted stomach and small bowel loops appear nonobstructed. Normal appendix. Colon demonstrates mild diffuse scattered colonic fecal debris with moderate rectal impaction. Interval cholecystectomy. Again hysterectomy. Stable 1.3 cm left lower renal exophytic cyst and new 1.5 cm right upper renal cyst. No free fluid/air. Remaining liver, pancreas, spleen, adrenal glands, kidneys, ureters, and bladder are unremarkable for noncontrast exam. Moderate scattered aortoiliac calcifications without AAA. Osseous structures intact again with osteopenia, mild/moderate degenerative changes throughout the spine, and mild dextroscoliosis. Impression: 1. New mild diffuse fecal stasis with moderate rectal impaction. 2. Chronic findings including colonic diverticulosis, bilateral renal cysts, arteriosclerotic disease, and chronic bony findings. 3. Remaining CT abdomen/pelvis without contrast exam is negative.
[2022-08-26 13:02] LABS: ABO TYPING O; Antibody Screen NEGATIVE (NEGATIVE); INR 1.22 (0.8-3.0); PROTIME 12.7 SECONDS (9.4-12.5); RH TYPING POSITIVE
[2022-08-26 13:21] LABS: WBC 0-2 /HPF (0-5)
[2022-08-26 13:24] LABS: Appearance CLEAR (CLEAR); Bilirubin NEGATIVE (NEGATIVE); Dipstick done @ ? MAIN LAB; Glucose 100 mg/dL (NEGATIVE); Ketones NEGATIVE (NEGATIVE); Nitrite NEGATIVE (NEGATIVE); Protein,Urine Dip NEGATIVE (Negative); RBC NEGATIVE Ery/ul (0-5); Specific Gravity 1.025 (1.005-1.025); Urobilinogen 0.2 mg/dL (0-1)
[2022-08-26 13:26] LABS: Urine Cultured Indicated? NO
[2022-08-26 13:50] LABS: INFLUENZA A NEGATIVE (NEGATIVE); INFLUENZA B NEGATIVE (NEGATIVE); RESPIRATORY SYNCTIAL VIRUS NEGATIVE (Negative); SARS-CoV-2 Xpert Express NEGATIVE (NEGATIVE)
[2022-08-26] MEDS ORDERED: PIPERACILLIN/TAZOBACTAM 3.375 GM in Sodium Chloride 100ML MINI-BAG PLUS 100 ML IV ONE (16:05)
[2022-08-26] MEDS ORDERED: PIPERACILLIN/TAZOBACTAM IV ONE (17:31)
[2022-08-26] MEDS ORDERED: Sodium Chloride 100ML MINI-BAG PLUS 100 ML IV ONE (17:31)
[2022-08-26] MEDS ORDERED: Zofran 4 MG/2 ML VIAL IV PRN (18:46)
[2022-08-26] MEDS: PIPERACILLIN/TAZOBACTAM 3.375 GM in Sodium Chloride 100ML MINI-BAG PLUS 100 ML IV SCH (19:14)
[2022-08-26] MEDS: Sodium Chloride 0.9% 1000 ML 1,000 ML IV SCH (19:14)
[2022-08-26 20:09] LABS: Hematocrit 28.8 % (35-47); Hemoglobin 8.4 g/dL (12.0-16.0)
[2022-08-26] MEDS: Namenda 5 MG PO SCH (21:19)
[2022-08-26] MEDS: Ditropan 5 MG PO SCH (21:20)
[2022-08-26] MEDS: Aricept 10 MG PO SCH (21:20)
[2022-08-26] MEDS: Mucinex 600MG ER Tabs PO SCH (21:20)
[2022-08-27] MEDS: PIPERACILLIN/TAZOBACTAM 3.375 GM in Sodium Chloride 100ML MINI-BAG PLUS 100 ML IV SCH ×5 (01:15→23:38)
[2022-08-27 02:35] LABS: Absolute Neutrophil Ct (ANC) 8.59 x10^3/uL (1.4-6.9); Basophil (Absolute #) 0.05 x10^3/uL (0-0.4); Eosinophil % 0.8 % (0.00-5.0); Hematocrit 27.3 % (35-47); Hemoglobin 7.9 g/dL (12.0-16.0); Lymphocyte (Absolute #) 1.86 x10^3/uL (1.0-4.6); Lymphocytes % 15.7 % (24.0-44.0); Mean Cell Volume 93.2 fL (78-100); Mean Corpuscular Hgb Concent. 28.9 g/dL (32-36); Monocyte (Absolute #) 0.79 x10^3/uL (0.0-1.3); Monocytes % 6.7 % (0.0-12.0); Neutrophil % 72.4 % (36.0-66.0); Platelet Count 430 x10^3/uL (150-450); Red Blood Count 2.93 x10^6/uL (4.1-5.4); Red Cell Distribution Width 14.3 % (11.5-14.0); White Blood Count 11.9 x10^3/uL (4.0-10.5)
[2022-08-27 02:53] LABS: ALBUMIN 2.8 g/dL (3.5-5.0); BILIRUBIN,TOTAL 0.6 mg/dL (0.2-1.3); Calcium 10.6 mg/dL (8.4-10.2); Creatinine 1 0.98 mg/dL (0.52-1.04); EST GLOMERULAR FILTRATION RATE 57.6 ML/MIN; PREALBUMIN 14.34 mg/dL (17.6-36.0); Potassium 4.1 mmol/L (3.5-5.1); Total Protein 6.1 g/dL (6.3-8.2)
[2022-08-27 03:43] LABS: Slide Review 1 YES
[2022-08-27] MEDS ORDERED: PIPERACILLIN/TAZOBACTAM IV ONE (06:10)
[2022-08-27] MEDS ORDERED: Sodium Chloride 100ML MINI-BAG PLUS 100 ML IV ONE (06:12)
[2022-08-27] MEDS: Sodium Chloride 0.9% 1000 ML 1,000 ML IV SCH ×2 (06:15→23:03)
[2022-08-27] MEDS: TYLENOL 325 MG PO PRN ×2 (06:23→11:10)
[2022-08-27] MEDS ORDERED: DICLOFENAC SODIUM TP PRN (10:17)
[2022-08-27] MEDS: Ditropan 5 MG PO SCH ×2 (11:10→22:05)
[2022-08-27] MEDS: Namenda 5 MG PO SCH ×2 (11:10→22:05)
[2022-08-27] MEDS: Mucinex 600MG ER Tabs PO SCH ×3 (11:10→22:00)
[2022-08-27 12:10] LABS: Hematocrit 28.1 % (35-47); Hemoglobin 8.2 g/dL (12.0-16.0)
[2022-08-27] MEDS ORDERED: Golytely Solution 4000 ML PO ONE (14:00)
[2022-08-27] MEDS: Aricept 10 MG PO SCH (22:05)
--- NOTE | 2022-08-27 22:48 | PCM.HP ---
History of Present Illness - Chief Complaint Chief Complaint: Rectal bleeding for 1-2 days History of Present Illness: is a 81 year old female.who presents to the emergency department via ambulance service with rectal bleeding. Patient is not the best historian. I was able to obtain from the patient that she is not short of breath. She has no chest pain. She has no abdominal pain. Her son arrived shortly after she did and states that approximately 2 weeks ago she did have a lung procedure performed. He also stated that this morning, his sister noticed blood clots rectally out of his mother. That is why they brought her into the emergency department via ambulance. He is unaware of the patient taking anticoagulation therapy. Patient does have a history of chronic anemia, hypothyroidism, hyperlipidemia, cholecystectomy and hysterectomy. Timing/Duration: today Quality: other (No abdominal pain) Severity of Pain-Max: none Severity of Pain-Current: none Associated Symptoms: denies symptoms Previous symptoms: no prior history - Review of Systems Constitutional: Lethargy, Weakness, No Fever, No Chills Eyes: No Symptoms Ears, Nose, & Throat: No Symptoms Respiratory: No Cough, No Short Of Breath Cardiac: No Chest Pain, No Edema, No Syncope Abdominal/Gastrointestinal: Hematochezia, Appetite Changes, No Abdominal Pain, No Nausea, No Vomiting, No Diarrhea Genitourinary Symptoms: No Dysuria Musculoskeletal: No Back Pain, No Neck Pain Skin: No Rash Neurological: No Dizziness, No Focal Weakness, No Sensory Changes Psychological: No Symptoms Endocrine: No Symptoms Hematologic/Lymphatic: No Symptoms Immunological/Allergic: No Symptoms Medications & Allergies Home Medications: Home Medication List Levothyroxine Sodium 25 Mcg [Synthroid 25 Mcg] 25 mcg PO DAILY 10/19/13 [History Confirmed 08/26/22] Fenofibrate Nanocrystallized [Fenofibrate] 145 mg PO DAILY 12/11/19 [History Confirmed 08/26/22] Oxybutynin Chloride 5 mg [Ditropan 5 MG] 5 mg PO BID 12/11/19 [History Confirmed 08/26/22] Cetirizine HCl [Zyrtec] 10 mg PO DAILY PRN 02/17/20 [History Confirmed 08/26/22] predniSONE [Prednisone] 5 mg PO DAILY 09/09/20 [History Confirmed 08/26/22] Donepezil HCl 10 mg [Aricept 10 MG] 10 mg PO HS 08/26/22 [History Confirmed 08/26/22] Fluticasone Propionate [Flovent Diskus] 50 mcg IH DAILY PRN 08/26/22 [History Confirmed 08/26/22] Megestrol Acetate [Megace Susp] 40 mg PO DAILY 08/26/22 [History Confirmed 08/26/22] Memantine HCl [Namenda] 10 mg PO BID 08/26/22 [History Confirmed 08/26/22] guaiFENesin [Mucus Relief ER] 600 mg PO BID 08/26/22 [History Confirmed 08/26/22] Allergies/Adverse Reactions: Allergies Allergy/AdvReac Type Severity Reaction Status Date / Time No Known Drug Allergies Allergy Verified 08/26/22 11:53 - Past Medical History Past Medical History: Yes Neurological History: No Pertinent History ENT History: No Pertinent History Cardiac History: No Pertinent History Respiratory History: No Pertinent History Endocrine Medical History: Hypothyroidism Musculoskelatal History: Arthritis, Other GI Medical History: Gallbladder Disease History: No Pertinent History Pyscho-Social History: No Pertinent History Reproductive Disorders: No Pertinent History Comment: anemia, - Past Surgical History Past Surgical History: Yes Neuro Surgical History: No Pertinent History Cardiac History: No Pertinent History Respiratory Surgery: No Pertinent History GI Surgical History: Cholecystectomy Genitourinary Surgical Hx: No Pertinent History Musculskeletal Surgical Hx: Orthopedic Surgery Female Surgical History: Hysterectomy Other Surgical History: tumor removed from uterus per hysterectomy. lt knee, foot surgery - Social History Smoking Status: Never smoker Exposure to second hand smoke: No Alcohol: None Drug Use: none - Physical Exam Vital Signs: Vital Signs - 24 hr Temp Pulse Resp BP Pulse Ox 08/27/22 19:40 97.7 F 70 18 142/64 93 L 08/27/22 16:00 98.9 F 62 17 128/59 92 L 08/27/22 12:00 98.7 F 70 17 145/65 91 L 08/27/22 07:33 98.9 F 68 17 144/66 93 L 08/27/22 04:00 98.0 F 76 18 134/65 95 08/27/22 00:00 98.1 F 75 18 142/63 96 General Appearance: mild distress, alert, lethargy Neurologic Exam: alert, oriented x 3, cooperative, normal mood/affect, sensation nml, No motor deficits Eye Exam: PERRL/EOMI, eyes nml inspection Ears, Nose, Throat Exam: normal ENT inspection, TMs normal, pharynx normal, moist mucous membranes Neck Exam: normal inspection, non-tender, supple, full range of motion Respiratory Exam: normal breath sounds, lungs clear, No respiratory distress Cardiovascular Exam: regular rate/rhythm, normal heart sounds, normal peripheral pulses Gastrointestinal/Abdomen Exam: soft, normal bowel sounds, No tenderness, No mass Back Exam: normal inspection, normal range of motion, No CVA tenderness, No vertebral tenderness Extremity Exam: normal inspection, normal range of motion, pelvis stable Skin Exam: normal color, warm, dry, No rash Wound Assessment: Skin/Wound Assessment Wound/Incision Assessment Start: 08/26/22 19:57 Text: Status: Active Freq: Q6H Protocol: Document 08/27/22 17:00 AR (Rec: 08/27/22 18:38 AR [id number]) Wound/Incision Assessment Right Buttock Wound Assessment Shift Assessment Wound Type Pressure Ulcer Wound Stage Stage I Dressing Status Dry & Intact General Appearance Open to air Wound Bed Greatest Portion Dusky Red Left Buttock Wound Assessment Shift Assessment Wound Type Pressure Ulcer Wound Stage Unstageable General Appearance Open to air Wound Bed Lesser Portion Dusky Red Comment pictures in chart Wound Photo Photo Taken Yes Date: 08/27/22 Time: 02:00 Lymphatic Exam: No adenopathy Results - Labs Lab/Micro Results: Lab Results-Last 24 Hours 08/27/22 08/27/22 08/27/22 Range/Units 02:31 02:31 11:55 WBC 11.9 H (4.0-10.5) x10^3/uL RBC 2.93 L (4.1-5.4) x10^6/uL Hgb 7.9 L 8.2 L (12.0-16.0) g/dL Hct 27.3 L 28.1 L (35-47) % MCV 93.2 (78-100) fL MCH 27.0 (26-32) pg MCHC 28.9 L (32-36) g/dL RDW 14.3 H (11.5-14.0) % Plt Count 430 (150-450) x10^3/uL MPV 9.0 (7.5-11.0) fL Gran % 72.4 H (36.0-66.0) % Immature Gran % (Auto) 4.0 H (0.00-0.4) % Nucleat RBC Rel Count 0.0 (0.00-0.1) % Eos # (Auto) 0.10 (0-0.5) x10^3/uL Immature Gran # (Auto) 0.47 H (0.00-0.03) x10^3u/L Absolute Lymphs (auto) 1.86 (1.0-4.6) x10^3/uL Absolute Monos (auto) 0.79 (0.0-1.3) x10^3/uL Absolute Nucleated RBC 0.00 (0.00-0.01) x10^3u/L Lymphocytes % 15.7 L (24.0-44.0) % Monocytes % 6.7 (0.0-12.0) % Eosinophils % 0.8 (0.00-5.0) % Basophils % 0.4 (0.0-0.4) % Absolute Granulocytes 8.59 H (1.4-6.9) x10^3/uL Basophils # 0.05 (0-0.4) x10^3/uL Sodium 138 (137-145) mmol/L Potassium 4.1 (3.5-5.1) mmol/L Chloride 109 H (98-107) mmol/L Carbon Dioxide 25 (22-30) mmol/L Anion Gap 9.0 (5-15) MEQ/L BUN 31 H (7-17) mg/dL Creatinine 0.98 (0.52-1.04) mg/dL Estimated GFR 57.6 ML/MIN Glucose 163 H (74-106) mg/dL Calcium 10.6 H (8.4-10.2) mg/dL Total Bilirubin 0.60 (0.2-1.3) mg/dL AST 30 (14-36) U/L ALT 25 (0-35) U/L Alkaline Phosphatase 87 (38-126) U/L Serum Total Protein 6.1 L (6.3-8.2) g/dL Albumin 2.8 L (3.5-5.0) g/dL Prealbumin 14.34 L (17.6-36.0) mg/dL Slides for Path Review YES - Radiology Impressions Radiology Exams & Impressions: Radiology Procedures Category Date Time Status ABDOMEN AND PELVIS W/0 CONTRAS [CT] Stat Exams 08/26/22 12:02 Completed Assessment/Plan (1) Rectal bleeding Current Visit: Yes Status: Acute Assessment & Plan: Chief Complaint Diagnosis Rectal bleeding Allergies Allergy/AdvReac Type Severity Reaction Status Date / Time No Known Drug Allergies Allergy Verified 08/26/22 11:53 Vital Signs (Last 24 hours) Temp Pulse Resp BP Pulse Ox 08/27/22 19:40 97.7 F 70 18 142/64 93 L 08/27/22 16:00 98.9 F 62 17 128/59 92 L 08/27/22 12:00 98.7 F 70 17 145/65 91 L 08/27/22 07:33 98.9 F 68 17 144/66 93 L 08/27/22 04:00 98.0 F 76 18 134/65 95 08/27/22 00:00 98.1 F 75 18 142/63 96 Home Medications Medication Instructions Recorded Confirmed Last Taken Type Donepezil HCl 10 mg [Aricept 10 10 mg PO HS 08/26/22 08/26/22 Unknown History MG] Fluticasone Propionate [Flovent 50 mcg IH DAILY PRN 08/26/22 08/26/22 Unknown History Diskus] Megestrol Acetate [Megace 40 mg PO DAILY 08/26/22 08/26/22 Unknown History Susp] Memantine HCl [Namenda] 10 mg PO BID 08/26/22 08/26/22 Unknown History guaiFENesin [Mucus Relief ER] 600 mg PO BID 08/26/22 08/26/22 Unknown History Current Medications Generic Name Dose Route Start Last Admin Trade Name Freq PRN Reason Stop Dose Admin Acetaminophen 650 mg 08/26/22 18:46 08/27/22 11:10 Acetaminophen 325 Mg Tablet PO 09/25/22 18:45 650 mg Q4H PRN PRN Administration PAIN, FEVER, HEADACHE Diclofenac Sodium 2 gm 08/27/22 10:17 08/27/22 11:23 Diclofenac Sodium 100 Gm Gel..Gram. TP 09/26/22 10:16 2 gm QID PRN PRN Administration PAIN Donepezil HCl 10 mg 08/26/22 22:00 08/27/22 22:05 Donepezil Hcl 10 Mg Tablet PO 09/25/22 21:59 10 mg HS MAGDALENA Administration Guaifenesin 600 mg 08/26/22 22:00 08/27/22 11:14 Guaifenesin 600 Mg Tablet Er PO 09/25/22 21:59 Not Given BID MAGDALENA Sodium Chloride 1,000 mls @ 75 mls/hr 08/26/22 18:46 08/27/22 06:15 Sodium Chloride 0.9% 1000 Ml IV 09/25/22 18:45 75 mls/hr .[id number] MAGDALENA Administration Piperacillin Sod/Tazobactam 100 mls @ 200 mls/hr 08/26/22 18:46 08/27/22 18:38 Sod 3.375 gm/ Sodium Chloride IV 08/29/22 18:45 200 mls/hr Q6HT MAGDALENA Administration Memantine 10 mg 08/26/22 22:00 08/27/22 22:05 Memantine Hcl 5 Mg Tablet PO 09/25/22 21:59 10 mg BID MAGDALENA Administration Ondansetron HCl 4 mg 08/26/22 18:46 Ondansetron Hcl 4 Mg/2 Ml Vial IV 09/25/22 18:45 Q6H PRN PRN NAUSEA/VOMITING Oxybutynin Chloride 5 mg 08/26/22 22:00 08/27/22 22:05 Oxybutynin Chloride 5 Mg Tablet PO 09/25/22 21:59 5 mg BID MAGDALENA Administration Discontinued Medications Generic Name Dose Route Start Last Admin Trade Name Freq PRN Reason Stop Dose Admin Piperacillin Sod/Tazobactam 100 mls @ 200 mls/hr 08/26/22 16:05 08/26/22 17:35 Sod 3.375 gm/ Sodium Chloride IV 08/26/22 16:34 200 mls/hr STAT ONE Administration Sodium Chloride Confirm 08/26/22 17:31 Sodium Chloride 100ml Mini-Bag Plus Administered 08/26/22 17:32 Dose 100 mls @ ud IV .STK-MED ONE Sodium Chloride Confirm 08/27/22 06:12 Sodium Chloride 100ml Mini-Bag Plus Administered 08/27/22 06:13 Dose 100 mls @ ud IV .STK-MED ONE Piperacillin Sod/Tazobactam Sod Confirm 08/26/22 17:31 Piperacillin/Tazobactam Sodium 3.375 Gm Vial Administered 08/26/22 17:32 Dose 3.375 gm IV .STK-MED ONE Piperacillin Sod/Tazobactam Sod Confirm 08/27/22 06:10 Piperacillin/Tazobactam Sodium 3.375 Gm Vial Administered 08/27/22 06:11 Dose 3.375 gm IV .STK-MED ONE Polyethylene Glycol/Electrolytes 4,000 ml 08/27/22 14:00 08/27/22 16:01 Sod Sulf/Sod/Nahco3/Kcl/Peg's 4000 Ml Bottle PO 08/27/22 14:01 4,000 ml ONCE@1400 ONE Administration Intake & Output (Last 24 hours) 08/25/22 08/26/22 08/27/22 08/28/22 11:59 11:59 11:59 11:59 Intake Total 1993 2030 Output Total 1250 400 Balance 744 1631 Weight 68 kg 68 kg Laboratory Results (Last 24 hours) 08/27/22 08/27/22 08/27/22 11:55 02:31 02:31 WBC 11.9 H RBC 2.93 L Hgb 8.2 L 7.9 L Hct 28.1 L 27.3 L MCV 93.2 MCH 27.0 MCHC 28.9 L RDW 14.3 H Plt Count 430 MPV 9.0 Gran % 72.4 H Immature Gran % (Auto) 4.0 H Nucleat RBC Rel Count 0.0 Eos # (Auto) 0.10 Immature Gran # (Auto) 0.47 H Absolute Lymphs (auto) 1.86 Absolute Monos (auto) 0.79 Absolute Nucleated RBC 0.00 Lymphocytes % 15.7 L Monocytes % 6.7 Eosinophils % 0.8 Basophils % 0.4 Absolute Granulocytes 8.59 H Basophils # 0.05 Sodium 138 Potassium 4.1 Chloride 109 H Carbon Dioxide 25 Anion Gap 9.0 BUN 31 H Creatinine 0.98 Estimated GFR 57.6 Glucose 163 H Calcium 10.6 H Total Bilirubin 0.60 AST 30 ALT 25 Alkaline Phosphatase 87 Serum Total Protein 6.1 L Albumin 2.8 L Prealbumin 14.34 L Slides for Path Review YES Orders (Last 24 hours) Category Date Time Status Consult Surgery ROUTINE Cons 08/27/22 09:59 Active NPO Diet 08/28/22 00:01 Active CBC W DIFF AM.LAB Lab 08/27/22 02:31 Completed CMP AM.LAB Lab 08/27/22 02:31 Completed HEMOGLOBIN AND HEMATOCRIT Routine Lab 08/27/22 11:55 Completed PREALBUMIN Routine Lab 08/27/22 02:31 Completed Diclofenac Sodium Med 08/27/22 10:17 Active 2 gm TP QID PRN PRN Donepezil HCl 10 mg [Aricept 10 MG] Med 08/26/22 22:00 Active 10 mg PO HS Guaifenesin 600 mg ER [Mucinex 600MG ER Tabs] Med 08/26/22 22:00 Active 600 mg PO BID Memantine HCl 5 mg [Namenda 5 MG] Med 08/26/22 22:00 Active 10 mg PO BID NaCl 0.9% 100 ml Mini-Bag Plus [Sodium Chloride 100ML Med 08/27/22 06:12 Discontinued MINI-BAG PLUS] 100 ml IV UD Oxybutynin Chloride 5 mg [Ditropan 5 MG] Med 08/26/22 22:00 Active 5 mg PO BID Piperacillin/Tazobactam 3.375G [Piperacillin/Tazobactam Med 08/27/22 06:10 Discontinued ] 3.375 gm IV .STK-MED ONE Sod Sulf/Sod/Nahco3/KCl/Peg's* [Golytely Solution 4000 Med 08/27/22 14:00 Discontinued ML] 4,000 ml PO ONCE@1400 ONE Patient Care Notes (Last 24 hours) 08/27/22 15:42 Nursing Note by Evita Chapa CALLED AND LET US KNOW THAT THEY PLAN TO DO SCOPES 08/28/22 AROUND NOON. Initialized on 08/27/22 15:42 - END OF NOTE 08/27/22 12:30 Nursing Note by Jorge Stewart ROUNDED WITH DR KOWALSKI, HE SPOKE WITH PT'S DAUGHTER AND EXPLAINED PLAN OF WANTING TO DO A SCOPE. ALSO AT THIS TIME TAHIR ROSA CLINICAL DERMATOLOGIST WITH DR [facility] CALLED, WILL DO EGD/CS TOMORROW ORDERED TO START GOLYTELY PREP TODAY, CL DIET TODAY AND NPO AT ND. STATES SHE WILL CALL SURGERY TEAM TO ADD PT TO TOMORROWS SX SCHED Initialized on 08/27/22 12:30 - END OF NOTE 08/27/22 12:05 Case Management Note by Gely Santos Addendum entered by Gely Santos 08/27/22 12:08: [facility] AWARE Original Note: S/W NARESH FROM [facility]- SHE REPORTS THEY HAVE ALREADY RECEIVED THEIR HOSPICE ORDERS AND HAVE DELIVERED EQUIPMENT. THEY ARE READY FOR PATIENT AT TIME OF DC. THEY WILL NEED NOTIFIED WHEN DC TIME IS PLANNED. NARESH'S PHONE NUMBER IS [phone] Initialized on 08/27/22 12:05 - END OF NOTE 08/27/22 11:39 (created 08/27/22 11:47) Nursing Note by Evita Chapa CALLED CONSULT TO [facility]ICE. Initialized on 08/27/22 11:47 - END OF NOTE 08/27/22 08:58 Nursing Note by Jorge Stewart DR CALLED, REPORTED HGB 7.9, GAVE NEW ORDER FOR H&H AT 1200. CONSULT SX FOR POSSIBLE CS Initialized on 08/27/22 08:58 - END OF NOTE Code(s): K62.5 - HEMORRHAGE OF ANUS AND RECTUM (2) Anemia Current Visit: Yes Status: Acute Qualifiers: Anemia type: iron deficiency Iron deficiency anemia type: chronic blood loss Qualified Code(s): D50.0 - Iron deficiency anemia secondary to blood loss (chronic) Code(s): D64.9 - ANEMIA, UNSPECIFIED
[2022-08-28 05:40] LABS: Absolute Neutrophil Ct (ANC) 6.55 x10^3/uL (1.4-6.9); Basophil (Absolute #) 0.05 x10^3/uL (0-0.4); Eosinophil % 1.1 % (0.00-5.0); Eosinophil (Absolute #) 0.11 x10^3/uL (0-0.5); Lymphocyte (Absolute #) 1.68 x10^3/uL (1.0-4.6); Lymphocytes % 17.4 % (24.0-44.0); Mean Corpuscular Hemoglobin 26.8 pg (26-32); Mean Corpuscular Hgb Concent. 29.2 g/dL (32-36); Mean Platelet Volume 8.9 fL (7.5-11.0); Monocyte (Absolute #) 0.59 x10^3/uL (0.0-1.3); Monocytes % 6.1 % (0.0-12.0); Neutrophil % 68.2 % (36.0-66.0); Platelet Count 395 x10^3/uL (150-450); Red Blood Count 2.61 x10^6/uL (4.1-5.4); Red Cell Distribution Width 14.3 % (11.5-14.0); White Blood Count 9.6 x10^3/uL (4.0-10.5)
[2022-08-28 05:53] LABS: ANION GAP 8.3 MEQ/L (5-15); Calcium 9.8 mg/dL (8.4-10.2); Creatinine 1 0.99 mg/dL (0.52-1.04); EST GLOMERULAR FILTRATION RATE 56.9 ML/MIN; Potassium 3.7 mmol/L (3.5-5.1)
[2022-08-28] MEDS: PIPERACILLIN/TAZOBACTAM 3.375 GM in Sodium Chloride 100ML MINI-BAG PLUS 100 ML IV SCH ×3 (06:01→19:09)
[2022-08-28 07:00] LABS: BAND 6 % (0.0-2.0); Eosinophil 1 % (0.00-3.0); Lymphocytes 17 % (24-44); Monocyte 4 % (0.0-12.0); Total Cells Counted 100
[2022-08-28 07:01] LABS: Platelet Estimate NORMAL (NORMAL)
[2022-08-28] MEDS ORDERED: Sodium Chloride 0.9% 1000 ML 1,000 ML IV SCH (08:30)
[2022-08-28 09:37] LABS: CROSS MATCH (PRBC) COMPATIBLE (COMPATIBLE)
[2022-08-28] MEDS: Namenda 5 MG PO SCH ×2 (11:17→22:04)
[2022-08-28] MEDS: Ditropan 5 MG PO SCH ×2 (11:17→22:04)
[2022-08-28] MEDS: Mucinex 600MG ER Tabs PO SCH ×2 (11:17→22:04)
[2022-08-28] MEDS ORDERED: Lactated Ringers 1,000 ML IV ONE (12:24)
[2022-08-28] MEDS ORDERED: Xylocaine-Mpf 2% 5 Ml Vial ONE (12:25)
[2022-08-28] MEDS ORDERED: DIPRIVAN 200 MG/20 ML IV ONE (12:25)
--- NOTE | 2022-08-28 13:09 | OP ---
SURGERY DATE/TIME: 08/28/2022 1222 PREOPERATIVE DIAGNOSIS: GI bleed. POSTOPERATIVE DIAGNOSIS: Very significant duodenal ulcer 1 cm posterior wall certainly has been bleeding substantially here in the near past, is not bleeding now and is starting to heal. PROCEDURE: EGD. SURGEON: Mick Mitchell M.D. ANESTHESIA: MAC. COMPLICATIONS: None. CONDITION: Stable. INDICATION: A patient with GI bleed. DESCRIPTION OF PROCEDURE: Taken to endoscopy. MAC sedation provided. Scope introduced. There is as Schatzki's ring and grade 2 gastroesophageal reflux disease. There is a little bit of gastritis. On the keyhole view, there is a duodenal ulcer posterior surface closer to the lesser curve that is starting to heal. It certainly has been a very big ulcer probably bled substantially. It is not bleeding now and is trying to heal. Second portion of the duodenum had clear bile. Scope is withdrawn. The patient tolerated the procedure satisfactorily. Discussion with the family. She has not had a colonoscopy and she has family members who have from colon cancer and she would prefer to have this done while she is here. We are working on this.
[2022-08-28] MEDS: PROTONIX 40 MG IV IV SCH (14:36)
[2022-08-28] MEDS: Pepcid 20 MG VIAL IV SCH (14:36)
[2022-08-28] MEDS ORDERED: XYLOCAINE 1% HCL 20 ML MDV ONE (17:59)
--- NOTE | 2022-08-28 18:40 | PCM.NOTE ---
Date and Time: 08/28/221837 Subjective Assessment: s/p EGD, Showed duodenal ulcer - Review of Systems Constitutional: No Fever, No Chills Eyes: No Symptoms Ears, Nose, & Throat: No Symptoms Respiratory: No Cough, No Short Of Breath Cardiac: No Chest Pain, No Edema, No Syncope Abdominal/Gastrointestinal: No Abdominal Pain, No Nausea, No Vomiting, No Diarrhea Genitourinary Symptoms: No Dysuria Musculoskeletal: No Back Pain, No Neck Pain Skin: No Rash Neurological: No Dizziness, No Focal Weakness, No Sensory Changes Psychological: No Symptoms Endocrine: No Symptoms Hematologic/Lymphatic: No Symptoms Immunological/Allergic: No Symptoms Objective Exam General Appearance: no apparent distress, alert Neurologic Exam: alert, oriented x 3, cooperative, normal mood/affect, nml cerebellar function, sensation nml, No motor deficits Skin Exam: normal color, warm, dry Wound Assessment: Skin/Wound Assessment Wound/Incision Assessment Start: 08/26/22 19:57 Text: Status: Active Freq: Q6H Protocol: Document 08/28/22 17:00 EK (Rec: 08/28/22 17:16 EK [id number]) Wound/Incision Assessment Right Buttock Wound Assessment Shift Assessment Wound Type Pressure Ulcer Wound Stage Unstageable General Appearance Open to air Wound Bed Greatest Portion Dusky Red Comment BARRIER CREAM APPLIED- PT BEING TURNED AND REPOSITIONED FREQUENTLY Left Buttock Wound Assessment Shift Assessment Wound Type Pressure Ulcer Wound Stage Unstageable General Appearance Open to air Wound Bed Lesser Portion Dusky Red Comment PT BEING TURNED AND REPOSITIONED FREQUENTLY Eye Exam: PERRL, EOMI, eyes nml inspection Ears, Nose, Throat Exam: normal ENT inspection, pharynx normal, moist mucous membranes Neck Exam: normal inspection, non-tender, supple, full range of motion Respiratory Exam: normal breath sounds, lungs clear, No respiratory distress Cardiovascular Exam: regular rate/rhythm, normal heart sounds Gastrointestinal/Abdomen Exam: soft, No tenderness, No mass Extremity Exam: normal inspection, normal range of motion Back Exam: normal inspection, normal range of motion, No CVA tenderness, No vertebral tenderness Pelvic Exam: deferred Rectal Exam: deferred OBJECTIVE DATA Vital Signs: Vital Signs - 24 hr Temp Pulse Resp BP Pulse Ox 08/28/22 14:37 98.9 F 71 18 163/72 94 L 08/28/22 13:45 98.4 F 70 177/68 08/28/22 13:00 97.5 F 65 18 147/71 95 08/28/22 11:09 98.1 F 63 17 162/70 96 08/28/22 08:06 97.9 F 67 17 155/67 96 08/28/22 04:03 98.0 F 76 18 155/67 95 08/28/22 04:00 97.3 F 74 22 143/59 94 L 08/27/22 23:55 97.3 F 74 22 143/59 94 L 08/27/22 19:40 97.7 F 70 18 142/64 93 L Pain Assessment - Last Documented Pain Intensity 0 Pain Scale Used 0-10 Pain Scale Intake and Output: Intake & Output 08/26/22 08/27/22 08/28/22 08/29/22 11:59 11:59 11:59 11:59 Intake Total 1993 4669 0 Output Total 1250 1200 500 Balance 744 3469 -500 Weight 68 kg 68 kg 68 kg Lab Results: Lab Results-Last 24 Hours 08/26/22 08/26/22 08/28/22 Range/Units 12:15 12:15 04:37 WBC 9.6 (4.0-10.5) x10^3/uL RBC 2.61 L (4.1-5.4) x10^6/uL Hgb 7.0 L* (12.0-16.0) g/dL Hct 24.0 L (35-47) % MCV 92.0 (78-100) fL MCH 26.8 (26-32) pg MCHC 29.2 L (32-36) g/dL RDW 14.3 H (11.5-14.0) % Plt Count 395 (150-450) x10^3/uL MPV 8.9 (7.5-11.0) fL Gran % 68.2 H (36.0-66.0) % Immature Gran % (Auto) 6.7 H (0.00-0.4) % Nucleat RBC Rel Count 0.0 (0.00-0.1) % Eos # (Auto) 0.11 (0-0.5) x10^3/uL Immature Gran # (Auto) 0.65 H (0.00-0.03) x10^3u/L Absolute Lymphs (auto) 1.68 (1.0-4.6) x10^3/uL Absolute Monos (auto) 0.59 (0.0-1.3) x10^3/uL Absolute Nucleated RBC 0.00 (0.00-0.01) x10^3u/L Lymphocytes % 17.4 L (24.0-44.0) % Monocytes % 6.1 (0.0-12.0) % Eosinophils % 1.1 (0.00-5.0) % Basophils % 0.5 (0.0-0.4) % Absolute Granulocytes 6.55 (1.4-6.9) x10^3/uL Segmented Neutrophils 72 H (36.0-66.0) % Band Neutrophils 6 H (0.0-2.0) % Lymphocytes (Manual) 17 L (24-44) % Monocytes (Manual) 4 (0.0-12.0) % Eosinophils (Manual) 1 (0.00-3.0) % Basophils # 0.05 (0-0.4) x10^3/uL Platelet Estimate NORMAL (NORMAL) RBC Morphology NORMAL Sodium (137-145) mmol/L Potassium (3.5-5.1) mmol/L Chloride (98-107) mmol/L Carbon Dioxide (22-30) mmol/L Anion Gap (5-15) MEQ/L BUN (7-17) mg/dL Creatinine (0.52-1.04) mg/dL Estimated GFR ML/MIN Glucose (74-106) mg/dL Calcium (8.4-10.2) mg/dL Crossmatch COMPATIBLE COMPATIBLE (COMPATIBLE) 08/28/22 08/28/22 Range/Units 05:15 08:30 WBC (4.0-10.5) x10^3/uL RBC (4.1-5.4) x10^6/uL Hgb (12.0-16.0) g/dL Hct (35-47) % MCV (78-100) fL MCH (26-32) pg MCHC (32-36) g/dL RDW (11.5-14.0) % Plt Count (150-450) x10^3/uL MPV (7.5-11.0) fL Gran % (36.0-66.0) % Immature Gran % (Auto) (0.00-0.4) % Nucleat RBC Rel Count (0.00-0.1) % Eos # (Auto) (0-0.5) x10^3/uL Immature Gran # (Auto) (0.00-0.03) x10^3u/L Absolute Lymphs (auto) (1.0-4.6) x10^3/uL Absolute Monos (auto) (0.0-1.3) x10^3/uL Absolute Nucleated RBC (0.00-0.01) x10^3u/L Lymphocytes % (24.0-44.0) % Monocytes % (0.0-12.0) % Eosinophils % (0.00-5.0) % Basophils % (0.0-0.4) % Absolute Granulocytes (1.4-6.9) x10^3/uL Segmented Neutrophils (36.0-66.0) % Band Neutrophils (0.0-2.0) % Lymphocytes (Manual) (24-44) % Monocytes (Manual) (0.0-12.0) % Eosinophils (Manual) (0.00-3.0) % Basophils # (0-0.4) x10^3/uL Platelet Estimate (NORMAL) RBC Morphology Sodium 142 (137-145) mmol/L Potassium 3.7 (3.5-5.1) mmol/L Chloride 112 H (98-107) mmol/L Carbon Dioxide 25 (22-30) mmol/L Anion Gap 8.3 (5-15) MEQ/L BUN 21 H (7-17) mg/dL Creatinine 0.99 (0.52-1.04) mg/dL Estimated GFR 56.9 ML/MIN Glucose 106 (74-106) mg/dL Calcium 9.8 (8.4-10.2) mg/dL Crossmatch COMPATIBLE (COMPATIBLE) Multi-Disciplinary Progress Notes: Multi-Disciplinary Progress Notes 08/28/22 09:51 Case Management Note by Gely Santos S/W DAUGHTER- THEY CONTINUE TO PLAN FOR PATIENT TO RETURN HOME WITH [facility]) [facility] AT TIME OF DC. EQUIPMENT HAS ALREADY BEEN DELIVERED AND FAMILY ABLE TO GIVE 24 HR CARE CANDY FROM [facility]( [place]) [facility]- HAS CALLED OR AN UPDATE. SHE WILL BE BY TO CHECK ON PATIENT Initialized on 08/28/22 09:51 - END OF NOTE Assessment/Plan (1) Duodenal ulcer Current Visit: Yes Status: Acute Assessment & Plan: Chief Complaint Diagnosis Rectal bleeding for 1-2 days Allergies Allergy/AdvReac Type Severity Reaction Status Date / Time No Known Drug Allergies Allergy Verified 08/26/22 11:53 Vital Signs (Last 24 hours) Temp Pulse Resp BP Pulse Ox 08/28/22 14:37 98.9 F 71 18 163/72 94 L 08/28/22 13:45 98.4 F 70 177/68 08/28/22 13:00 97.5 F 65 18 147/71 95 08/28/22 11:09 98.1 F 63 17 162/70 96 08/28/22 08:06 97.9 F 67 17 155/67 96 08/28/22 04:03 98.0 F 76 18 155/67 95 08/28/22 04:00 97.3 F 74 22 143/59 94 L 08/27/22 23:55 97.3 F 74 22 143/59 94 L 08/27/22 19:40 97.7 F 70 18 142/64 93 L Home Medications Medication Instructions Recorded Confirmed Last Taken Type Donepezil HCl 10 mg [Aricept 10 10 mg PO HS 08/26/22 08/26/22 Unknown History MG] Fluticasone Propionate [Flovent 50 mcg IH DAILY PRN 08/26/22 08/26/22 Unknown History Diskus] Megestrol Acetate [Megace 40 mg PO DAILY 08/26/22 08/26/22 Unknown History Susp] Memantine HCl [Namenda] 10 mg PO BID 08/26/22 08/26/22 Unknown History guaiFENesin [Mucus Relief ER] 600 mg PO BID 08/26/22 08/26/22 Unknown History Current Medications Generic Name Dose Route Start Last Admin Trade Name Freq PRN Reason Stop Dose Admin Acetaminophen 650 mg 08/26/22 18:46 08/27/22 11:10 Acetaminophen 325 Mg Tablet PO 09/25/22 18:45 650 mg Q4H PRN PRN Administration PAIN, FEVER, HEADACHE Diclofenac Sodium 2 gm 08/27/22 10:17 08/27/22 11:23 Diclofenac Sodium 100 Gm Gel..Gram. TP 09/26/22 10:16 2 gm QID PRN PRN Administration PAIN Donepezil HCl 10 mg 08/26/22 22:00 08/27/22 22:05 Donepezil Hcl 10 Mg Tablet PO 09/25/22 21:59 10 mg HS MAGDALENA Administration Famotidine 20 mg 08/28/22 14:00 08/28/22 14:36 Famotidine 20 Mg/1 Vial IV 09/27/22 13:59 20 mg DAILY MAGDALENA Administration Guaifenesin 600 mg 08/26/22 22:00 08/28/22 11:17 Guaifenesin 600 Mg Tablet Er PO 09/25/22 21:59 Not Given BID MAGDALENA Piperacillin Sod/Tazobactam 100 mls @ 200 mls/hr 08/26/22 18:46 08/28/22 14:36 Sod 3.375 gm/ Sodium Chloride IV 08/29/22 18:45 200 mls/hr Q6HT MAGDALENA Administration Sodium Chloride 1,000 mls @ 50 mls/hr 08/28/22 08:30 Sodium Chloride 0.9% 1000 Ml IV 09/27/22 08:29 .Q20H MAGDALNEA Memantine 10 mg 08/26/22 22:00 08/28/22 11:17 Memantine Hcl 5 Mg Tablet PO 09/25/22 21:59 Not Given BID MAGDALENA Ondansetron HCl 4 mg 08/26/22 18:46 Ondansetron Hcl 4 Mg/2 Ml Vial IV 09/25/22 18:45 Q6H PRN PRN NAUSEA/VOMITING Oxybutynin Chloride 5 mg 08/26/22 22:00 08/28/22 11:17 Oxybutynin Chloride 5 Mg Tablet PO 09/25/22 21:59 Not Given BID MAGDALENA Pantoprazole Sodium 40 mg 08/28/22 14:00 08/28/22 14:36 Pantoprazole 40 Mg Vial IV 09/27/22 13:59 40 mg Q24H10 MAGDALENA Administration Discontinued Medications Generic Name Dose Route Start Last Admin Trade Name Freq PRN Reason Stop Dose Admin Piperacillin Sod/Tazobactam 100 mls @ 200 mls/hr 08/26/22 16:05 08/26/22 17:35 Sod 3.375 gm/ Sodium Chloride IV 08/26/22 16:34 200 mls/hr STAT ONE Administration Sodium Chloride Confirm 08/26/22 17:31 Sodium Chloride 100ml Mini-Bag Plus Administered 08/26/22 17:32 Dose 100 mls @ ud IV .STK-MED ONE Sodium Chloride 1,000 mls @ 75 mls/hr 08/26/22 18:46 08/27/22 23:03 Sodium Chloride 0.9% 1000 Ml IV 09/25/22 18:45 75 mls/hr .[id number] MAGDALENA Administration Sodium Chloride Confirm 08/27/22 06:12 Sodium Chloride 100ml Mini-Bag Plus Administered 08/27/22 06:13 Dose 100 mls @ ud IV .STK-MED ONE Lactated Ringer's Confirm 08/28/22 12:24 Lactated Ringers Administered 08/28/22 12:25 Dose 1,000 mls @ ud IV .STK-MED ONE Lidocaine HCl Confirm 08/28/22 12:25 Lidocaine - Mpf 2% 5 Ml Vial Administered 08/28/22 12:26 Dose 5 ml .ROUTE .STK-MED ONE Lidocaine HCl Confirm 08/28/22 17:59 Lidocaine Hcl 1% 20 Ml Mdv 20 Ml Ml Administered 08/28/22 18:00 Dose 1 ml .ROUTE .STK-MED ONE Piperacillin Sod/Tazobactam Sod Confirm 08/26/22 17:31 Piperacillin/Tazobactam Sodium 3.375 Gm Vial Administered 08/26/22 17:32 Dose 3.375 gm IV .STK-MED ONE Piperacillin Sod/Tazobactam Sod Confirm 08/27/22 06:10 Piperacillin/Tazobactam Sodium 3.375 Gm Vial Administered 08/27/22 06:11 Dose 3.375 gm IV .STK-MED ONE Polyethylene Glycol/Electrolytes 4,000 ml 08/27/22 14:00 08/27/22 16:01 Sod Sulf/Sod/Nahco3/Kcl/Peg's 4000 Ml Bottle PO 08/27/22 14:01 4,000 ml ONCE@1400 ONE Administration Propofol Confirm 08/28/22 12:25 Propofol 10 Mg/Ml 20ml Vial Administered 08/28/22 12:26 Dose 200 mg IV .STK-MED ONE Intake & Output (Last 24 hours) 08/26/22 08/27/22 08/28/22 08/29/22 11:59 11:59 11:59 11:59 Intake Total 1993 4669 0 Output Total 1250 1200 500 Balance 744 3469 -500 Weight 68 kg 68 kg 68 kg Laboratory Results (Last 24 hours) 08/28/22 08/28/22 08/28/22 08:30 05:15 04:37 WBC 9.6 RBC 2.61 L Hgb 7.0 L* Hct 24.0 L MCV 92.0 MCH 26.8 MCHC 29.2 L RDW 14.3 H Plt Count 395 MPV 8.9 Gran % 68.2 H Immature Gran % (Auto) 6.7 H Nucleat RBC Rel Count 0.0 Eos # (Auto) 0.11 Immature Gran # (Auto) 0.65 H Absolute Lymphs (auto) 1.68 Absolute Monos (auto) 0.59 Absolute Nucleated RBC 0.00 Lymphocytes % 17.4 L Monocytes % 6.1 Eosinophils % 1.1 Basophils % 0.5 Absolute Granulocytes 6.55 Segmented Neutrophils 72 H Band Neutrophils 6 H Lymphocytes (Manual) 17 L Monocytes (Manual) 4 Eosinophils (Manual) 1 Basophils # 0.05 Platelet Estimate NORMAL RBC Morphology NORMAL Sodium 142 Potassium 3.7 Chloride 112 H Carbon Dioxide 25 Anion Gap 8.3 BUN 21 H Creatinine 0.99 Estimated GFR 56.9 Glucose 106 Calcium 9.8 Crossmatch COMPATIBLE 08/26/22 08/26/22 12:15 12:15 WBC RBC Hgb Hct MCV MCH MCHC RDW Plt Count MPV Gran % Immature Gran % (Auto) Nucleat RBC Rel Count Eos # (Auto) Immature Gran # (Auto) Absolute Lymphs (auto) Absolute Monos (auto) Absolute Nucleated RBC Lymphocytes % Monocytes % Eosinophils % Basophils % Absolute Granulocytes Segmented Neutrophils Band Neutrophils Lymphocytes (Manual) Monocytes (Manual) Eosinophils (Manual) Basophils # Platelet Estimate RBC Morphology Sodium Potassium Chloride Carbon Dioxide Anion Gap BUN Creatinine Estimated GFR Glucose Calcium Crossmatch COMPATIBLE COMPATIBLE Orders (Last 24 hours) Category Date Time Status Consent,Obtain ROUTINE Care 08/28/22 08:17 Active Enema PRN Care 08/28/22 09:03 Active H&H 1 Hr Post Transfusion 1 HR POST TRANSFUS Care 08/28/22 08:17 Active Clear Liquid Diet 08/28/22 Dinner Active BLOOD COMPONENT REQUEST Stat Lab 08/28/22 08:30 Completed BMP Routine Lab 08/28/22 05:15 Completed CBC W DIFF Routine Lab 08/28/22 04:37 Completed Manual Differential NC Routine Lab 08/28/22 04:37 Completed Famotidine 20 mg Vial [Pepcid 20 MG VIAL] Med 08/28/22 14:00 Active 20 mg IV DAILY Lidocaine HCl 1% 20 ml Mdv [Xylocaine 1% HCl 20 ml Med 08/28/22 17:59 Discontinued Mdv] 1 ml .ROUTE .STK-MED ONE Lidocaine HCl 2% Mpf 5 ml [Xylocaine-Mpf 2% 5 Ml Med 08/28/22 12:25 Discontinued Vial] 5 ml .ROUTE .STK-MED ONE NaCl 0.9% 1000 ml [Sodium Chloride 0.9% 1000 ML] 1,000 Med 08/28/22 08:30 Active ml IV 50 mls/hr Pantoprazole 40 mg [Protonix 40 mg IV] Med 08/28/22 14:00 Active 40 mg IV Q24H10 Propofol 200 mg/20 ml [Diprivan 200 mg/20 ml] Med 08/28/22 12:25 Discontinued 200 mg IV .STK-MED ONE Ringers Solution,Lactated [Lactated Ringers] 1,000 ml Med 08/28/22 12:24 Discontinued IV UD Patient Care Notes (Last 24 hours) 08/28/22 16:47 Nursing Note by Wanda Schmitt 20G IV TO RAC WENT BAD DURING 2ND UNIT PRBC. NOTIFIED DR. KOWALSKI. BLOOD TRANSFUSING THROUGH 22G TO LEFT HAND AT THIS TIME AT 50CC/HR WHILE ATTEMPTING TO REGAIN BETTER ACCESS (MD AWARE). 2 UNSUCCESSFUL ATTEMPTS WITH 20G TO LEFT FOREARM AND LEFT AC. REC. ORDER FOR MIDLINE PER DR. KOWALSKI. [facility] DENTIST NOTIFIED AND WILL CALL STAFF IN FOR MIDLINE. Initialized on 08/28/22 16:47 - END OF NOTE 08/28/22 13:26 Nursing Note by Wanda Schmitt PT BACK IN ROOM ON MEDSURG FROM OR. UPDATED DR. KOWALSKI OF EGD RESULTS: GASTRITIS WITH HEALING DUDOENAL ULCER AND THAT Norman HUGHES WILL COMPLETE COLONOSCOPY EITHER THURSDAY OR Thursday08/29/22 OR 08/30/22. REC. THE FOLLOWING ORDERS: CLEAR LIQUID DIET, PROTONIX 40MG IV DAILY AND PEPCID 20MG IV DAILY. Initialized on 08/28/22 13:26 - END OF NOTE 08/28/22 11:59 Nursing Note by Evita Chapa PATIENT TO OR FROM [facility] Initialized on 08/28/22 11:59 - END OF NOTE 08/28/22 09:51 Case Management Note by Gely Santos S/W DAUGHTER- THEY CONTINUE TO PLAN FOR PATIENT TO RETURN HOME WITH [facility]) [facility] AT TIME OF DC. EQUIPMENT HAS ALREADY BEEN DELIVERED AND FAMILY ABLE TO GIVE 24 HR CARE CANDY FROM [facility]( [place]) [facility]- HAS CALLED OR AN UPDATE. SHE WILL BE BY TO CHECK ON PATIENT Initialized on 08/28/22 09:51 - END OF NOTE 08/28/22 06:48 Nursing Note by Miguel Lopez 08/28/22 0640 notified of HGB 7.0 no new orders received. Initialized on 08/28/22 06:48 - END OF NOTE (2) Rectal bleeding Current Visit: Yes Status: Acute Assessment & Plan: s/p EGD. Showed duodenal ulcer Code(s): K62.5 - HEMORRHAGE OF ANUS AND RECTUM (3) Anemia Current Visit: Yes Status: Acute Qualifiers: Anemia type: iron deficiency Iron deficiency anemia type: chronic blood loss Qualified Code(s): D50.0 - Iron deficiency anemia secondary to blood loss (chronic) Code(s): D64.9 - ANEMIA, UNSPECIFIED
[2022-08-28] MEDS: TYLENOL 325 MG PO PRN (19:51)
[2022-08-28] MEDS: Sodium Chloride 0.9% 1000 ML 1,000 ML IV SCH (20:36)
[2022-08-28] MEDS: Aricept 10 MG PO SCH (22:04)
[2022-08-29] MEDS: PIPERACILLIN/TAZOBACTAM 3.375 GM in Sodium Chloride 100ML MINI-BAG PLUS 100 ML IV SCH ×3 (00:42→11:55)
[2022-08-29 02:41] LABS: Hematocrit 35.3 % (35-47)
[2022-08-29] MEDS ORDERED: SYNTHROID 25 MCG PO SCH (10:00)
[2022-08-29] MEDS: Namenda 5 MG PO SCH (10:43)
[2022-08-29] MEDS: Ditropan 5 MG PO SCH (10:43)
[2022-08-29] MEDS: PROTONIX 40 MG IV IV SCH (10:43)
[2022-08-29] MEDS: Pepcid 20 MG VIAL IV SCH (10:43)
[2022-08-29 10:58] VITALS: PULSE 78; O2SAT 91
[2022-08-29 11:00] VITALS: BP 158/82
--- NOTE | 2022-08-29 12:45 | PCM.DS ---
Discharge Summary Date of Admission: 08/26/22 17:48 Admitting Physician: MOJGAN KOWALSKI Consults: Consults on Case 08/27/22 09:59 Consult Surgery ROUTINE Primary Care Provider: DASHA RAND Allergies Allergies No Known Drug Allergies Allergy (Verified 08/26/22 11:53) Hospital Summary - Hospital Course Hospital Course: Chief Complaint Diagnosis Rectal bleeding for 1-2 days Allergies Allergy/AdvReac Type Severity Reaction Status Date / Time No Known Drug Allergies Allergy Verified 08/26/22 11:53 Vital Signs (Last 24 hours) Temp Pulse Resp BP Pulse Ox 08/29/22 10:59 158/82 08/29/22 10:57 97.7 F 78 16 91 L 08/29/22 07:14 98.6 F 69 18 210/90 95 08/29/22 04:00 98.4 F 64 16 179/78 92 L 08/29/22 00:00 97.9 F 70 20 176/74 92 L 08/28/22 20:00 98.2 F 73 18 187/79 94 L 08/28/22 14:37 98.9 F 71 18 163/72 94 L 08/28/22 13:45 98.4 F 70 177/68 08/28/22 13:00 97.5 F 65 18 147/71 95 Home Medications Medication Instructions Recorded Confirmed Last Taken Type Donepezil HCl 10 mg [Aricept 10 10 mg PO HS 08/26/22 08/26/22 Unknown History MG] Fluticasone Propionate [Flovent 50 mcg IH DAILY PRN 08/26/22 08/26/22 Unknown History Diskus] Megestrol Acetate [Megace 40 mg PO DAILY 08/26/22 08/26/22 Unknown History Susp] Memantine HCl [Namenda] 10 mg PO BID 08/26/22 08/26/22 Unknown History PANTOPRAZOLE 40 mg Tablet 40 mg PO QAM #30 tab 08/29/22 Unknown Rx [Protonix 40MG Tablet] Current Medications Generic Name Dose Route Start Last Admin Trade Name Freq PRN Reason Stop Dose Admin Acetaminophen 650 mg 08/26/22 18:46 08/28/22 19:51 Acetaminophen 325 Mg Tablet PO 09/25/22 18:45 650 mg Q4H PRN PRN Administration PAIN, FEVER, HEADACHE Diclofenac Sodium 2 gm 08/27/22 10:17 08/27/22 11:23 Diclofenac Sodium 100 Gm Gel..Gram. TP 09/26/22 10:16 2 gm QID PRN PRN Administration PAIN Donepezil HCl 10 mg 08/26/22 22:00 08/28/22 22:04 Donepezil Hcl 10 Mg Tablet PO 09/25/22 21:59 10 mg HS MAGDALENA Administration Famotidine 20 mg 08/28/22 14:00 08/29/22 10:43 Famotidine 20 Mg/1 Vial IV 09/27/22 13:59 20 mg DAILY MAGDALENA Administration Piperacillin Sod/Tazobactam 100 mls @ 200 mls/hr 08/26/22 18:46 08/29/22 11:55 Sod 3.375 gm/ Sodium Chloride IV 08/30/22 18:45 200 mls/hr Q6HT MAGDALENA Administration Sodium Chloride 1,000 mls @ 50 mls/hr 08/28/22 08:30 08/28/22 20:35 Sodium Chloride 0.9% 1000 Ml IV 09/27/22 08:29 Not Given .Q20H MAGDALENA Levothyroxine Sodium 25 mcg 08/29/22 10:00 08/29/22 10:43 Levothyroxine Sodium 25 Mcg Tablet PO 09/28/22 09:59 25 mcg DAILY MAGDALENA Administration Memantine 10 mg 08/26/22 22:00 08/29/22 10:43 Memantine Hcl 5 Mg Tablet PO 09/25/22 21:59 10 mg BID MAGDALENA Administration Ondansetron HCl 4 mg 08/26/22 18:46 Ondansetron Hcl 4 Mg/2 Ml Vial IV 09/25/22 18:45 Q6H PRN PRN NAUSEA/VOMITING Oxybutynin Chloride 5 mg 08/26/22 22:00 08/29/22 10:43 Oxybutynin Chloride 5 Mg Tablet PO 09/25/22 21:59 5 mg BID MAGDALENA Administration Pantoprazole Sodium 40 mg 08/28/22 14:00 08/29/22 10:43 Pantoprazole 40 Mg Vial IV 09/27/22 13:59 40 mg Q24H10 MAGDALENA Administration Discontinued Medications Generic Name Dose Route Start Last Admin Trade Name Freq PRN Reason Stop Dose Admin Guaifenesin 600 mg 08/26/22 22:00 08/28/22 22:04 Guaifenesin 600 Mg Tablet Er PO 09/25/22 21:59 Not Given BID MAGDALENA Piperacillin Sod/Tazobactam 100 mls @ 200 mls/hr 08/26/22 16:05 08/26/22 17:35 Sod 3.375 gm/ Sodium Chloride IV 08/26/22 16:34 200 mls/hr STAT ONE Administration Sodium Chloride Confirm 08/26/22 17:31 Sodium Chloride 100ml Mini-Bag Plus Administered 08/26/22 17:32 Dose 100 mls @ ud IV .STK-MED ONE Sodium Chloride 1,000 mls @ 75 mls/hr 08/26/22 18:46 08/28/22 20:36 Sodium Chloride 0.9% 1000 Ml IV 09/25/22 18:45 Not Given .[id number] MAGDALENA Sodium Chloride Confirm 08/27/22 06:12 Sodium Chloride 100ml Mini-Bag Plus Administered 08/27/22 06:13 Dose 100 mls @ ud IV .STK-MED ONE Lactated Ringer's Confirm 08/28/22 12:24 Lactated Ringers Administered 08/28/22 12:25 Dose 1,000 mls @ ud IV .STK-MED ONE Lidocaine HCl Confirm 08/28/22 12:25 Lidocaine - Mpf 2% 5 Ml Vial Administered 08/28/22 12:26 Dose 5 ml .ROUTE .STK-MED ONE Lidocaine HCl Confirm 08/28/22 17:59 Lidocaine Hcl 1% 20 Ml Mdv 20 Ml Ml Administered 08/28/22 18:00 Dose 1 ml .ROUTE .STK-MED ONE Piperacillin Sod/Tazobactam Sod Confirm 08/26/22 17:31 Piperacillin/Tazobactam Sodium 3.375 Gm Vial Administered 08/26/22 17:32 Dose 3.375 gm IV .STK-MED ONE Piperacillin Sod/Tazobactam Sod Confirm 08/27/22 06:10 Piperacillin/Tazobactam Sodium 3.375 Gm Vial Administered 08/27/22 06:11 Dose 3.375 gm IV .STK-MED ONE Polyethylene Glycol/Electrolytes 4,000 ml 08/27/22 14:00 08/27/22 16:01 Sod Sulf/Sod/Nahco3/Kcl/Peg's 4000 Ml Bottle PO 08/27/22 14:01 4,000 ml ONCE@1400 ONE Administration Propofol Confirm 08/28/22 12:25 Propofol 10 Mg/Ml 20ml Vial Administered 08/28/22 12:26 Dose 200 mg IV .STK-MED ONE Intake & Output (Last 24 hours) 08/27/22 08/28/22 08/29/22 08/30/22 11:59 11:59 11:59 11:59 Intake Total 6483 5807 2557 Output Total 1250 1200 1250 Balance 744 3469 1307 Weight 68 kg 68 kg Laboratory Results (Last 24 hours) 08/29/22 02:00 Hgb 11.0 L D Hct 35.3 Orders (Last 24 hours) Category Date Time Status Clear Liquid Diet 08/28/22 Dinner Active Discharge Routine Discharge 08/29/22 10:19 Ordered HEMOGLOBIN AND HEMATOCRIT Urgent Lab 08/29/22 02:00 Completed Famotidine 20 mg Vial [Pepcid 20 MG VIAL] Med 08/28/22 14:00 Active 20 mg IV DAILY Levothyroxine Sodium 25 Mcg [Synthroid 25 Mcg] Med 08/29/22 10:00 Active 25 mcg PO DAILY Lidocaine HCl 1% 20 ml Mdv [Xylocaine 1% HCl 20 ml Med 08/28/22 17:59 Discontinued Mdv] 1 ml .ROUTE .STK-MED ONE Lidocaine HCl 2% Mpf 5 ml [Xylocaine-Mpf 2% 5 Ml Med 08/28/22 12:25 Discontinued Vial] 5 ml .ROUTE .STK-MED ONE Pantoprazole 40 mg [Protonix 40 mg IV] Med 08/28/22 14:00 Active 40 mg IV Q24H10 Propofol 200 mg/20 ml [Diprivan 200 mg/20 ml] Med 08/28/22 12:25 Discontinued 200 mg IV .STK-MED ONE Ringers Solution,Lactated [Lactated Ringers] 1,000 ml Med 08/28/22 12:24 Discontinued IV UD Patient Care Notes (Last 24 hours) 08/29/22 09:51 Nursing Note by Evita Chapa NOTIFIED [facility] OFFICE THAT PATIENT WILL DC TODAY; NO CSCOPE NEEDED. Initialized on 08/29/22 09:51 - END OF NOTE 08/29/22 09:40 (created 08/29/22 09:49) Case Management Note by Berkley Morin DAUGHTER HERE, ALONG WITH PT'S . DISCUSSED DC HOME WITH HOSPICE. DAUGHTER QUESTIONED THE COLONOSCOPY. DISCUSSED THAT DR. KOWALSKI DOES NOT FEEL THAT TEST IS NOW NECESSARY, PER THE EGD RESULTS GIVING THE REASON FOR THE GI BLEED, AND SHE IS ON THE MEDS THAT SHE NEEDS TO BE ON FOR IT TO HEAL. FAMILY AGREES TO THIS PLAN. DAUGHTER WOULD LIKE TO MAKE ARRANGEMENTS FOR PT TO DC HOME TODAY AROUND 2PM. SHE IS GOING TO GET GROCERIES AND RUN A FEW ERRANDS, AND WILL BE READY BY 2PM. ALSO, SPOKE WITH ROBERT AT [facility]. THEY WILL ALSO, PLAN TO MEET PT AT HER HOME. DISCUSSED THAT DAUGHTER WAS REQUESTING A TRANSPORT CHAIR IN THE HOME. ROBERT IS MAKING ARRANGEMENTS. Initialized on 08/29/22 09:49 - END OF NOTE 08/29/22 09:15 (created 08/29/22 09:46) Case Management Note by Berkley Morin SPOKE WITH DR. KOWALSKI, PLAN FOR PT TO DC HOME TODAY WITH [facility]. N/O TO CANCEL THE ORDER FOR COLONOSCOPY. ARRANGE FOR AMBULANCE TO TRANSPORT PT HOME. Initialized on 08/29/22 09:46 - END OF NOTE 08/29/22 05:47 SBAR Note by Margie Antony SITUATION I am calling about JAVIER HERNÁNDEZ the patient's code status is Full Code The problem I am calling about is: Pt might benifit from Dr Bustillo consulting on the left heel blister. ASSESSMENT RECOMMENDATION Physician notified at [id number] New Orders received: Vital Signs (Last 4 hours) Temp Pulse Resp BP Pulse Ox 08/29/22 04:00 98.4 F 64 16 179/78 92 L Diagnois, Code Status Date of Arrival on Unit 08/26/22 Admitted From Emergency Dept Diagnosis Rectal bleeding for 1-2 days Resucitation Status Full Code Intake and Output 12 Hours 08/28/22 08/29/22 18:59 06:59 Intake Total 0 2317 Output Total 500 750 Balance -500 1567 Weight 68 kg Intake: Intake, Oral Amount 0 700 Intake, IV Amount 1267 Intake, Blood Product 350 Amount Output: Output, [place]: 500 750 Other: Number of Bowel Movements 1 2 Physical Assessment Anxiety Level Moderate,Sleeping Mental Status Confused Patient Orientation Person Coma Scale Total 14 Breath Sounds [Anterior Diminished Bilateral] Bowel Sounds [All Quadrants] Hyperactive Abdomen Description Soft,Non-Tender Urine Appearance Clear Urine Color Yellow Skin Color Pale Skin Temperature Warm Pain Scale (Last 12 Hours) Pain Intensity 0 Pain Intensity 4 Pain Intensity 4 PAST MEDICAL HISTORY Neurological History No Pertinent History ENT History No Pertinent History Endocrine Medical History Hypothyroidism Respiratory History No Pertinent History Cardiac History No Pertinent History GI Medical History Gallbladder Disease History No Pertinent History Reproductive Disorders No Pertinent History Pyscho-Social History No Pertinent History Communicable Disease No Pertinent History Comment anemia, Lab Results (Last 12 Hours) 08/29/22 Range/Units 02:00 Hgb 11.0 L D (12.0-16.0) g/dL Hct 35.3 (35-47) % Nursing Notes (Last 12 hours) 08/29/22 00:56 Nursing Note by Roxy Mares Patient tolerated last unit of PRBCs well, no issues. Initialized on 08/29/22 00:56 - END OF NOTE 08/28/22 23:08 Nursing Note by Roxy Mares Order for mucinex unacknowledged d/t report from family that patient no longer takes at home. Initialized on 08/28/22 23:08 - END OF NOTE 08/28/22 18:55 Nursing Note by Wanda Schmitt 4F CATHETER PLACED TO LEFT UPPER ARM WITH ULTRASOUND GUIDANCE BY ANNA THOMSON PHARMACEUTICAL DETAILER SUCCESSFUL WITH FIRST ATTEMPT. Initialized on 08/28/22 18:55 - END OF NOTE 08/28/22 18:25 (created 08/28/22 18:56) Nursing Note by Wanda Schmitt 2ND UNIT PRBC'S STOPPED AT THIS TIME DUE TO REACHING 4 HR LIMIT WITH AROUND 100CC LEFT IN BAG. WAS NOT ABLE TO COMPLETE INFUSION DUE TO ONLY HAVING ACCESS WITH 22G TO LEFT WRIST - WAS ABLE TO RUN INFUSION THROUGH AT RATE OF 40-50CC/HR PER PT TOLERATION WHILE WAITING ON IV ACCESS. AWARE. Initialized on 08/28/22 18:56 - END OF NOTE Active Visit Medications Generic Name Dose Route Start Last Admin Trade Name Freq PRN Reason Stop Dose Admin Acetaminophen 650 mg 08/26/22 18:46 08/28/22 19:51 Acetaminophen 325 Mg Tablet PO 09/25/22 18:45 650 mg Q4H PRN PRN Administration PAIN, FEVER, HEADACHE Diclofenac Sodium 2 gm 08/27/22 10:17 08/27/22 11:23 Diclofenac Sodium 100 Gm Gel..Gram. TP 09/26/22 10:16 2 gm QID PRN PRN Administration PAIN Donepezil HCl 10 mg 08/26/22 22:00 08/28/22 22:04 Donepezil Hcl 10 Mg Tablet PO 09/25/22 21:59 10 mg HS MAGDALENA Administration Famotidine 20 mg 08/28/22 14:00 08/28/22 14:36 Famotidine 20 Mg/1 Vial IV 09/27/22 13:59 20 mg DAILY MAGDALENA Administration Guaifenesin 600 mg 08/26/22 22:00 08/28/22 22:04 Guaifenesin 600 Mg Tablet Er PO 09/25/22 21:59 Not Given BID MAGDALENA Piperacillin Sod/Tazobactam 100 mls @ 200 mls/hr 08/26/22 18:46 08/29/22 05:34 Sod 3.375 gm/ Sodium Chloride IV 08/29/22 18:45 200 mls/hr Q6HT MAGDALENA Administration Sodium Chloride 1,000 mls @ 50 mls/hr 08/28/22 08:30 08/28/22 20:35 Sodium Chloride 0.9% 1000 Ml IV 09/27/22 08:29 Not Given .Q20H MAGDALENA Memantine 10 mg 08/26/22 22:00 08/28/22 22:04 Memantine Hcl 5 Mg Tablet PO 09/25/22 21:59 10 mg BID MAGDALENA Administration Ondansetron HCl 4 mg 08/26/22 18:46 Ondansetron Hcl 4 Mg/2 Ml Vial IV 09/25/22 18:45 Q6H PRN PRN NAUSEA/VOMITING Oxybutynin Chloride 5 mg 08/26/22 22:00 08/28/22 22:04 Oxybutynin Chloride 5 Mg Tablet PO 09/25/22 21:59 5 mg BID MAGDALENA Administration Pantoprazole Sodium 40 mg 08/28/22 14:00 08/28/22 14:36 Pantoprazole 40 Mg Vial IV 09/27/22 13:59 40 mg Q24H10 MAGDALENA Administration Home Medications Medication Instructions Recorded Confirmed Last Taken Type Donepezil HCl 10 mg [Aricept 10 10 mg PO HS 08/26/22 08/26/22 Unknown History MG] Fluticasone Propionate [Flovent 50 mcg IH DAILY PRN 08/26/22 08/26/22 Unknown History Diskus] Megestrol Acetate [Megace 40 mg PO DAILY 08/26/22 08/26/22 Unknown History Susp] Memantine HCl [Namenda] 10 mg PO BID 08/26/22 08/26/22 Unknown History guaiFENesin [Mucus Relief ER] 600 mg PO BID 08/26/22 08/26/22 Unknown History Initialized on 08/29/22 05:47 - END OF NOTE 08/29/22 00:56 Nursing Note by Roxy Mares Patient tolerated last unit of PRBCs well, no issues. Initialized on 08/29/22 00:56 - END OF NOTE 08/28/22 23:08 Nursing Note by Roxy Mares Order for mucinex unacknowledged d/t report from family that patient no longer takes at home. Initialized on 08/28/22 23:08 - END OF NOTE 08/28/22 18:55 Nursing Note by Wanda Schmitt 4F CATHETER PLACED TO LEFT UPPER ARM WITH ULTRASOUND GUIDANCE BY ANNA THOMSON PHARMACEUTICAL DETAILER SUCCESSFUL WITH FIRST ATTEMPT. Initialized on 08/28/22 18:55 - END OF NOTE 08/28/22 18:25 (created 08/28/22 18:56) Nursing Note by Wanda Schmitt 2ND UNIT PRBC'S STOPPED AT THIS TIME DUE TO REACHING 4 HR LIMIT WITH AROUND 100CC LEFT IN BAG. WAS NOT ABLE TO COMPLETE INFUSION DUE TO ONLY HAVING ACCESS WITH 22G TO LEFT WRIST - WAS ABLE TO RUN INFUSION THROUGH AT RATE OF 40-50CC/HR PER PT TOLERATION WHILE WAITING ON IV ACCESS. AWARE. Initialized on 08/28/22 18:56 - END OF NOTE 08/28/22 16:47 Nursing Note by Wanda Schmitt 20G IV TO RAC WENT BAD DURING 2ND UNIT PRBC. NOTIFIED DR. KOWALSKI. BLOOD TRANSFUSING THROUGH 22G TO LEFT HAND AT THIS TIME AT 50CC/HR WHILE ATTEMPTING TO REGAIN BETTER ACCESS ( AWARE). 2 UNSUCCESSFUL ATTEMPTS WITH 20G TO LEFT FOREARM AND LEFT AC. REC. ORDER FOR MIDLINE PER DR. KOWALSKI. DIE ENGRAVING SUPERVISOR NOTIFIED AND WILL CALL STAFF IN FOR MIDLINE. Initialized on 08/28/22 16:47 - END OF NOTE 08/28/22 13:26 Nursing Note by Wanda Schmitt PT BACK IN ROOM ON MEDSURG FROM OR. UPDATED DR. KOWALSKI OF EGD RESULTS: GASTRITIS WITH HEALING DUDOENAL ULCER AND THAT [facility] WILL COMPLETE COLONOSCOPY EITHER THURSDAY OR Thursday08/29/22 OR 08/30/22. REC. THE FOLLOWING ORDERS: CLEAR LIQUID DIET, PROTONIX 40MG IV DAILY AND PEPCID 20MG IV DAILY. Initialized on 08/28/22 13:26 - END OF NOTE - Vitals & Intake/Output Vital Signs: Vital Signs Temperature 97.7 F 08/29/22 10:57 Pulse Rate 78 08/29/22 10:57 Respiratory Rate 16 08/29/22 10:57 Blood Pressure 158/82 08/29/22 10:59 O2 Sat by Pulse Oximetry 91 L 08/29/22 10:57 Intake & Output: Intake & Output 08/27/22 08/28/22 08/29/22 08/30/22 11:59 11:59 11:59 11:59 Intake Total 1993 9129 2557 Output Total 1250 1200 1250 Balance 744 3469 1307 Weight 68 kg 68 kg - Lab Result Diagrams: 08/29/22 02:00 08/28/22 05:15 Lab Results-Last 24 Hrs: Lab Results-Last 24 Hours 08/29/22 Range/Units 02:00 Hgb 11.0 L D (12.0-16.0) g/dL Hct 35.3 (35-47) % - Procedures and Test Procedures and Tests throughout Hospitalization: Therapy Orders & Screens 08/26/22 19:57 OT Screen per Nursing Assess ONCE Comment: Protocol Order Physician Instructions: Greater than 3 points order OT Admission Screening Reason For Exam: Triggered on Admission Diagnosis: Rectal bleeding Open Wound/Cellutlitis/Pressure Ulcers: Yes Acute Fx/ORIF/Change in wt bearing status: No Severe MUSCULOSKELETAL pain: No ADL Dysfunction: Yes Acute CVA w/Hemiparesis/Hemiplegia: No Decreased Functional Mobility/Strength: Yes Sprain/Strain: No Acute Post-op Mobility Dysfunction: No Total Points: 9 PT Screen per Nursing Assess ONCE Comment: Protocol Order Physician Instructions: Greater than 3 points order PT Admission Screenin Reason For Exam: Triggered on Admission Diagnosis: Rectal bleeding Open Wound/Cellutlitis/Pressure Ulcers: Yes Acute Fx/ORIF/Change in wt bearing status: No Severe MUSCULOSKELETAL pain: No ADL Dysfunction: Yes Acute CVA w/Hemiparesis/Hemiplegia: No Decreased Functional Mobility/Strength: Yes Sprain/Strain: No Acute Post-op Mobility Dysfunction: No Total Points: 9 Discharge Exam General Appearance: no apparent distress, alert Neurologic Exam: alert, oriented x 3, cooperative, normal mood/affect, nml cerebellar function, sensation nml, No motor deficits Eye Exam: PERRL, EOMI, eyes nml inspection Ears, Nose, Throat Exam: normal ENT inspection, pharynx normal, moist mucous membranes Neck Exam: normal inspection, non-tender, supple, full range of motion Respiratory Exam: normal breath sounds, lungs clear, No respiratory distress Cardiovascular Exam: regular rate/rhythm, normal heart sounds Gastrointestinal/Abdomen Exam: soft, No tenderness, No mass Pelvic Exam: deferred Rectal Exam: deferred Back Exam: normal inspection, normal range of motion, No CVA tenderness, No vertebral tenderness Extremity Exam: normal inspection, normal range of motion Skin Exam: normal color, warm, dry Wound Assessment: Skin/Wound Assessment Wound/Incision Assessment Start: 08/26/22 19:57 Text: Status: Active Freq: Q6H Protocol: Document 08/29/22 11:00 AR (Rec: 08/29/22 11:32 AR [id number]) Wound/Incision Assessment Right Buttock Wound Assessment Shift Assessment Wound Type Pressure Ulcer Wound Stage Unstageable General Appearance Open to air Wound Bed Greatest Portion Dusky Red Comment barrier cream-turned and pillows used to offload pressure Left Buttock Wound Assessment Shift Assessment Wound Type Pressure Ulcer Wound Stage Unstageable General Appearance Open to air Wound Bed Lesser Portion Dusky Red Comment barrier cream-turned and pillows used to offload pressure Wound Photo Photo Taken Yes Date: 08/27/22 Time: 02:00 Final Diagnosis/Problem List - Final Discharge Diagnosis/Problem (1) Duodenal ulcer Current Visit: Yes Status: Acute Priority: High Assessment & Plan: as above (2) Rectal bleeding Current Visit: Yes Status: Resolved Code(s): K62.5 - HEMORRHAGE OF ANUS AND RECTUM (3) Anemia Current Visit: Yes Status: Chronic Code(s): D64.9 - ANEMIA, UNSPECIFIED - Discharge Discharge Date: 08/29/22 Disposition: Hospice @ [facility] Condition: Stable Prescriptions: New PANTOPRAZOLE 40 mg Tablet [Protonix 40MG Tablet] 40 mg PO QAM #30 tab Continue Levothyroxine Sodium 25 Mcg [Synthroid 25 Mcg] 25 mcg PO DAILY Oxybutynin Chloride 5 mg [Ditropan 5 MG] 5 mg PO BID Fenofibrate Nanocrystallized [Fenofibrate] 145 mg PO DAILY Cetirizine HCl [Zyrtec] 10 mg PO DAILY PRN predniSONE [Prednisone] 5 mg PO DAILY Donepezil HCl 10 mg [Aricept 10 MG] 10 mg PO HS Fluticasone Propionate [Flovent Diskus] 50 mcg IH DAILY PRN PRN Reason: Allergies Megestrol Acetate [Megace Susp] 40 mg PO DAILY Memantine HCl [Namenda] 10 mg PO BID Instructions: Gastric Ulcer (DC), Gastrointestinal Bleeding (DC), Upper GI Endoscopy (DC) Additional Instructions: [facility] WILL COME TO YOUR HOME TODAY TO ADMIT YOU TO SERVICES.
== END 2022-08-29 14:00 | disposition hospice, home (50) ==
LOC: ED 11:52 → MED SURG 17:48
PROVIDERS: ADMIT General Practice; ATTEND General Practice
DX: K26.9 Duodenal ulcer, unspecified as acute or chronic, without hemorrhage or perforation (principal); K62.5 Hemorrhage of anus and rectum; D64.9 Anemia, unspecified; K22.2 Esophageal obstruction; K21.9 Gastro-esophageal reflux disease without esophagitis; L89.320 Pressure ulcer of left buttock, unstageable; L89.310 Pressure ulcer of right buttock, unstageable; E03.9 Hypothyroidism, unspecified; E78.5 Hyperlipidemia, unspecified; Z79.899 Other long term (current) drug therapy; Z20.828 Contact with and (suspected) exposure to other viral communicable diseases; Z80.0 Family history of malignant neoplasm of digestive organs
CPT/HCPCS: 00731; 0241U; 36000; 36415; 36430; 43235; 51702; 74176; 80048; 80053; 81015; 82150; 83605; 83690; 84134; 85014; 85018; 85025; 85610; 86850; 86900; 86901; 86922; 96365; 99100; 99140; 99285; P9016; 76942; G0378; J2704; A9270-GY